=== PATIENT | female | born 1955 | race Caucasian/White ===

== ENCOUNTER → 2020-01-17 | Outpatient (REF) | payer MEDICARE | LOC: M SFHCLERA 12:29 | PROVIDERS: ATTEND Nurse Practitioner Family | DX: R39.9 Unspecified symptoms and signs involving the genitourinary system (principal) ==

== ENCOUNTER → 2020-01-17 | Outpatient (CLI) | payer MEDICARE ==
--- NOTE | 2020-01-17 14:35 | REP ---
KUB: REASON: Hematuria. PRIORS: None. FINDINGS: KUB shows the intestinal gas pattern to be nonspecific. The organ silhouettes insofar as delineated are unremarkable. There is no evidence of free intraperitoneal air. IMPRESSION: Nonspecific. The stool pattern is unremarkable. Electronically Signed by Roberto Sawyer DO 01/17/2020 02:39 P
== END ==
LOC: M LRY 12:54
PROVIDERS: ATTEND Nurse Practitioner Family
DX: R31.9 Hematuria, unspecified (principal)
CPT/HCPCS: 74018; 81002; 87086; G0463

== ENCOUNTER → 2020-03-05 | Outpatient (CLI) | payer MEDICARE ==
[~2020-03-05] MED LIST: AMOX500C PO; AMOX875T2 PO; CIPR500T3 PO; LEVO50TA5 PO; LIDOCAINE 1% MDV 20ML VIAL As Ordered ONE; LOVE1INJ SC; MIDAZOLAM INJ 2MG/2ML VIAL (J2250 PER 1MG) As Ordered ONE; ONDA8TAB10; ONDA8TAB10 PO; PANT40TA29 PO; PROC10TA4 PO; VITA50005 PO; ceFAZolin 1GM VIAL (J0690 PER 500MG) As Ordered ONE; diphenhydrAMINE 50MG/ML VIAL (J1200) As Ordered ONE; fentaNYL 100 MCG/2 ML INJECTION (J3010) As Ordered ONE
--- NOTE | 2020-03-05 14:49 | POST-OPPD ---
Postoperative Procedure Note Date Of Procedure: Mar 05, 2020 Time Of Procedure: 14:47 PREOPERATIVE DIAGNOSIS: ovarian cancer POSTOPERATIVE DIAGNOSIS: same FINDINGS: patent right IJ PROCEDURE: right sided port placed SURGEON: Kesha ANESTHESIA: mod sed ESTIMATED BLOOD LOSS: < 5 ml COMPLICATIONS: none POSTOPERATIVE CONDITION: stable CLARI VERGARA MD Mar 05, 2020 14:48
[2020-03-05 16:20] VITALS: BP 148/67
--- NOTE | 2020-03-09 14:16 | REP ---
IR Ultrasound and fluoroscopy-guided port placement. IR Ultrasound of the neck. IR Moderate sedation. Clinical information: Ovarian cancer. Physician: Dr. Rebolledo. Procedure: The patient was advised of the benefits, risks, and alternatives of the procedure and informed consent was obtained. A time-out was performed with verification of the patient's name, MRN, site of procedure and type of procedure to be performed. The patient was positioned in the supine position on the angiographic table. The site was prepped and draped in the usual sterile fashion. Moderate sedation was performed by the physician including the presence of an independent trained observer who assisted and monitored the patient's level of consciousness and physiologic status. Following the administration of fentanyl and Versed, the physician spent 30 minutes of continuous face to face time with the patient. Ultrasound of the neck reveals a patent and compressible right internal jugular vein. A helpdesk analyst radiograph reveals no gross abnormality. The neck and anterior chest wall were anesthetized with lidocaine. The right internal jugular vein was accessed using a microintroducer needle under ultrasound guidance, via a lateral approach. An 018 wire was advanced into the superior vena cava, the needle was removed and a microsheath was placed. An Amplatz wire was then passed into the inferior vena cava. An incision at the internal jugular vein access site and anterior chest wall were made using a scalpel. An incision was made at the anterior chest wall. A small pocket was created using a combination of blunt and sharp dissection. A tunneling device was then used to pass the catheter from the pocket to the neck puncture site. An 8-Ugandan Angio dynamics Smart power port was then positioned in the pocket. The catheter was then measured and cut. The introducer sheath was exchanged for a peel-away sheath. The catheter was passed through the peel-away sheath into the internal jugular vein and the peel-away sheath was removed. The port tip was positioned at the cavoatrial junction. The port was then accessed with a Pearce needle. The port flushes and aspirates well. The puncture site in the neck was closed. The chest wall incision was then closed with 2-0 Vicryl and 4-0 Monocryl. Glue and Steri-Strips were applied. A sterile dressing was then applied. The patient tolerated the procedure well and was returned to the PRU in stable condition. Estimated blood loss: <5 ml. Complications: None. Conclusion: 1. Successful placement of an 8-Ugandan Angio dynamics Smart power port via the right internal jugular vein. The port is ready for immediate use. 2. Patient to follow up in IR clinic in 2 weeks. Thank you for this referral. Electronically Signed by Theresa Rebolledo MD 03/09/2020 02:15 P
== END ==
LOC: M IRPRO 12:23
PROVIDERS: ATTEND Internal Medicine Medical Oncology
DX: C56.9 Malignant neoplasm of unspecified ovary (principal)
CPT/HCPCS: 36561; 99152; 99153; C1769; C1788; C1894; J0690; J1200; J1642; J1644; J2250; J3010

== ENCOUNTER → 2020-03-10 | Outpatient (CLI) | payer MEDICARE ==
[~2020-03-10] MED LIST changes: -LIDOCAINE 1% MDV 20ML VIAL As Ordered ONE; -MIDAZOLAM INJ 2MG/2ML VIAL (J2250 PER 1MG) As Ordered ONE; -ceFAZolin 1GM VIAL (J0690 PER 500MG) As Ordered ONE; -diphenhydrAMINE 50MG/ML VIAL (J1200) As Ordered ONE; -fentaNYL 100 MCG/2 ML INJECTION (J3010) As Ordered ONE
--- NOTE | 2020-03-11 10:00 | REP ---
REASON FOR EXAM: History of ovarian carcinoma. There are no priors for comparison. After the intravenous administration of 9 millicuries of FDG-18, triplane whole body PET-CT was performed from the skull base to the mid thigh. There is no abnormal hypermetabolic activity seen in the neck, chest, abdomen, or pelvis. Hypermetabolic activity is seen in the anterior midline subcutaneous abdominal adipose secondary to postoperative change. IMPRESSION: No abnormal hypermetabolic activity is noted. Electronically Signed by Roberto Sawyer DO 03/11/2020 05:18 P
== END ==
LOC: M PLARAD 12:33
PROVIDERS: ATTEND Internal Medicine Medical Oncology
DX: C56.1 Malignant neoplasm of right ovary (principal)
CPT/HCPCS: 78815; A9552

== ENCOUNTER → 2020-10-16 | Outpatient (CLI) | payer MEDICARE ==
[~2020-10-16] MED LIST changes: +GABA-1171 PO; +GASTROGRAFIN SOLUTION 30ML (Q9963) As Ordered ONE
--- NOTE | 2020-10-21 07:53 | REP ---
INDICATION: OVARIAN CA COMPARISON: Outside examinations dated 08/18/2020, 04/17/2020 TECHNIQUE: Axial noncontrast images from the lung bases to the pubic symphysis with coronal and sagittal reformations obtained after administration of oral contrast as per protocol. This CT examination was performed using the following dose reduction techniques: Automated exposure control, adjustment of mA and/or kv according to the patient's size, and use of iterative reconstruction technique. FINDINGS: Lung bases are clear. Visualized heart and pericardium normal. Liver, spleen, pancreas, and bilateral adrenal glands are normal for noncontrast evaluation. Evidence for prior cholecystectomy. The left kidney demonstrates mild renal pelvic fullness with a ureteral stent in satisfactory position extending into the bladder without associated hydroureter. The right kidney demonstrates considerable cortical thinning and chronic grade 4 hydroureteronephrosis to the level of the mid pelvis where surgical clips are identified (series 201 images 92-97) after which the right ureter is not identifiable. Surgical clips are than noted in the deep right hemipelvis in the region of the right ureterovesical junction/right adnexa. These findings are essentially unchanged when compared with 08/18/2020. The enteric system is unremarkable and without obstruction or acute inflammatory process. Midline anterior abdominopelvic wall deep to the umbilicus demonstrates focal area of granulation tissue and subcutaneous gas likely related to prior surgery although abscess and or fistula cannot definitively be excluded (series 201 images 105-125). This same area on prior examination appear to contain oral contrast material which has subsequently been evacuated. Further evaluation of the pelvis demonstrates collapsed bladder and evidence for prior hysterectomy. No pelvic fluid or ascites. No free air. No adenopathy. No focal mass lesion. Abdominal aorta without aneurysm. Musculoskeletal structures demonstrate age-related degenerative changes without acute osseous abnormality. IMPRESSION: 1. Changes to the bilateral kidneys as described above similar to prior examination. Correlation with prior surgical history and intervention is recommended. Specifically, grade 4 right hydronephrosis and hydroureter to the level of surgical clips warrant correlation. 2. Presumed postsurgical granulation tissue in the periumbilical subcutaneous tissue with thickening and areas of subcutaneous gas. As described above, small resolving abscess and/or fistula cannot definitively be excluded. 3. No further acute abdominopelvic pathology appreciated. No ascites, adenopathy, or evidence for metastatic disease/recurrence noted. <Electronically signed by Ishmael Crabtree > 10/21/20 0749
== END ==
LOC: M RAD 16:24
PROVIDERS: ATTEND Specialist
DX: N13.30 Unspecified hydronephrosis (principal); C56.9 Malignant neoplasm of unspecified ovary
CPT/HCPCS: 74176; Q9963

== ENCOUNTER 2020-11-27 13:13 | Observation (INO) | payer MEDICARE ==
[~2020-11-27] VITALS: Ht 152.4 cm; Wt 181.7 kg
[2020-11-27] MEDS: LEVOTHYROXINE 50MCG TABLET (0.05MG) PO SCH (06:00)
[~2020-11-27 13:13] MED LIST changes: +AMPI500C9 PO; +GABA-845 PO; -GASTROGRAFIN SOLUTION 30ML (Q9963) As Ordered ONE; +ROSUVASTATIN 10 MG TAB (CRESTOR) PO SCH
--- NOTE | 2020-11-27 14:04 | REP ---
INDICATION: slurred speech. COMPARISON: No comparison brain imaging.. TECHNIQUE: Helical scanning is acquired. 5 mm axial images were reformatted. Coronal MPR images were generated. FINDINGS: Preliminary digital physician general internal medicine radiograph is unremarkable. Bone window settings show no bony destructive lesion. Visualized paranasal sinuses are clear. No intraorbital abnormality is seen. On soft tissue window settings, there is minimal generalized volume loss. There is no evidence of intracranial hemorrhage. However, there is a low-density area in the right basal ganglia including the anterior limb of the right internal capsule consistent with recent infarction. This area measures 3.2 x 1.8 by 1.9 cm. The infarct involves the head of the caudate nucleus and a portion of the Candace Jacobs nuclei. No other infarction is seen. No extra-axial fluid collection is observed. There is minimal attenuation of the adjacent frontal horn. IMPRESSION: Findings consistent with a acute/subacute infarct involving the right basal ganglia. No intracranial hemorrhage. No midline shift or extra-axial fluid collection. Minimal generalized volume loss.. <Electronically signed by Donato Joaquin > 11/27/20 1400
[2020-11-27] MEDS ORDERED: ASPIRIN 81 MG CHEW TABLET PO ONE (14:30)
[2020-11-27 14:52] LABS: BASO # 0.1 10^3/uL (0.0-0.2); EOS # 0.2 10^3/uL (0.0-0.5); EOS % 3.3 % (0.0-3.0); HEMOGLOBIN 13.3 g/dl (12.0-15.5); LYMPH # 1.3 10^3/uL (1.5-5.0); LYMPH % 19.8 % (24.0-44.0); MEAN CORPUSCULAR HEMOGLOBIN 27.7 pg (27.0-33.0); MEAN CORPUSCULAR HGB CONC 30.9 g/dl (32.0-36.5); MEAN CORPUSCULAR VOLUME 89.6 fl (80.0-96.0); MONO # 0.5 10^3/uL (0.0-0.8); NEUTROPHILS # 4.6 10^3/uL (1.5-8.5); NEUTROPHILS % 68.5 % (36.0-66.0); PLATELET COUNT, AUTOMATED 248 10^3/uL (150-450); WHITE BLOOD COUNT 6.7 10^3/uL (4.0-10.0)
[2020-11-27 15:02] LABS: INR 1.04; PROTHROMBIN TIME 13.8 SECONDS (12.5-14.3)
[2020-11-27 15:31] LABS: ALBUMIN 3.8 GM/DL (3.2-5.2); ALT/SGPT 20 U/L (12-78); BILIRUBIN,DIRECT 0.1 MG/DL (0.0-0.2); BILIRUBIN,TOTAL 0.4 MG/DL (0.2-1.0); BLOOD UREA NITROGEN 18 MG/DL (7-18); CALCIUM LEVEL 10.1 MG/DL (8.8-10.2); CARBON DIOXIDE LEVEL 26 MEQ/L (21-32); CHLORIDE LEVEL 108 MEQ/L (98-107); CK-MB VALUE MASS 1.1 NG/ML (<3.6); CPK CREATINE PHOSPHOKINASE 40 U/L (26-192); CREATININE FOR GFR 1.25 MG/DL (0.55-1.30); GLOMERULAR FILTRATION RATE 45.6 (>45); GLUCOSE, FASTING 92 MG/DL (70-100); MB/CK RELATIVE INDEX 2.75 (< OR =4); POTASSIUM SERUM 4.3 MEQ/L (3.5-5.1); SODIUM LEVEL 140 MEQ/L (136-145); TROPONIN I < 0.02 NG/ML (< 0.10)
--- NOTE | 2020-11-27 15:32 | REP ---
INDICATION: Altered Mental Status. COMPARISON: No comparison chest x-ray. TECHNIQUE: Portable upright AP chest radiograph. FINDINGS: The patient is rotated quite a bit to the left. There is right internal jugular Ywewpq-E-Uevg catheter with its tip in the expected location of the superior vena cava. Heart is not enlarged. Lung ward appear to be clear. Pulmonary vasculature is not increased. No acute bony abnormality.. IMPRESSION: Patient is rotated quite a bit to the left. Scyxuq-T-Oqor catheter in place. Otherwise no acute disease.. <Electronically signed by Donato Joaquin > 11/27/20 0331
[2020-11-27 15:33] LABS: RSV AMPLIFICATION NEGATIVE (NEGATIVE)
--- NOTE | 2020-11-27 15:42 | HPEPDOC ---
[facility] Medical History & Physical Date of Admission Nov 27, 2020 Date of Service: Nov 27, 2020 Attending Physician: Avis Morrell MD History and Physical CHIEF COMPLAINT: Slurred speech HISTORY OF PRESENT ILLNESS: Patient is a 65-year-old female with past medical history of right ovarian cancer status post chemotherapy 06/2020, peripheral neuropathy secondary to chemotherapy, hypothyroidism, right kidney injury, chronic abdominal wound who presented to [facility] emergency room with the chief complaint of having left- sided facial droop and search speech on 11/25/2020. According to patient, her symptoms began Monday afternoon at approximately 4 PM. She began experiencing lightheadedness, and her family stated she had left-sided facial droop with increased slurred speech. The patient stated her symptoms lasted approximately 34 hours and then resolved that same day. She denied chest pain, shortness of breath, fevers, headache, chills, coughing, drooling, recent stroke. Today the patient came to the emergency room to be further evaluated for her symptoms. In the emergency room vital signs were stable. Labs were unremarkable. CT of the head showed no acute, subacute right basal ganglia stroke. ECG NSR, TSH wnl. She was given aspirin 325. She was at her baseline functionally, which is needing a cane and a walker at times. She denied lightheadedness today. NIH stroke scale 0. Neurology was called and the case was discussed thoroughly. It was suggested that the patient would require MRI and MRA of the brain, echocardiogram, carotid ultrasound in addition to neuro checks Q4H. She was later admitted for further workup of CVA. REVIEW OF SYSTEMS: Neg except mentioned above PAST MEDICAL HISTORY: Right ovarian cancer s/p chemotherapy 06/2020 Peripheral neuropathy secondary to chemotherapy Hypothyroidism Right kidney injury 2/2 to prior surgery PAST SURGICAL HISTORY: Partial hysterectomy Right oophrectomy 01/2020 Left kidney stent placement B/l knee surgeries Debridement of abdominal wound x2 FAMILY HISTORY: noncontributory SOCIAL HISTORY: Denies smoking, alcohol or illicit drug use. She lives with her locally. Her primary care doctor is Dr. Small, Urologist- Dr. Hendricks [facility], Heme/Oncology- Dr. Ruby, Wound care provider- Dr. Pitts. Full code ALLERGIES: Please see below. HOME MEDICATIONS: Please see below. PHYSICAL EXAMINATION: VS: stable CONSTITUTIONAL: No acute distress, resting comfortably, AAO x 3 EYES: PERRLA, EOM intact HENT, MOUTH: Normocephalic, atraumatic, moist mucous membranes NECK: SUPPLE, no JVD, no lymphadenopathy, no carotid bruit CV: Regular rate and rhythm, S1S2 normal, no murmurs/rubs/gallops CHEST: right side chest port under skin RESPIRATORY: Clear to auscultation bilaterally, no rales/rhonchi/wheezes GI: obese abd, BS positive in 4 quadrants, soft, nontender, nondistended, no rebound or guarding, no organomegaly : Deferred MUSCULOSKELETAL: Normal ROM. No cyanosis, clubbing, swelling, joint deformity, +1 extremity edema INTEGUMENTARY: Abdominal wound, covered in bandage, no surrounding erythema, tenderness, nonsuppurative. Otherwise all skin is intact, no rashes, no lesions, no erythema NEUROLOGIC: Cranial Nerves II-XII are intact, no focal deficits PSYCHIATRIC: Mood and affect are normal LABORATORY DATA: Please see below IMAGING: CT head: Findings consistent with a acute/subacute infarct involving the right basal ganglia. No intracranial hemorrhage. No midline shift or extra-axial fluid collection. Minimal generalized volume loss CXR: No acute disease ASSESSMENT: 65-year-old female with past medical history of right ovarian cancer status post chemotherapy 06/2020, peripheral neuropathy secondary to chemotherapy, hypothyroidism, right kidney injury, chronic abdominal wound admitted for further workup of CVA. PLAN: Right basal ganglia acute/subacute CVA -NIH score 0, currently no focal deficits -TSH wnl, ECG NSR, BP controlled -CT head above -Discussed case with Dr. Pimentel, neurology. -Started on statin, high dose ASA. -F/u MRI/MRA brain, echocardiogram, US carotid arteries, neuro checks Q4H, PT/OT eval, telemetry Right ovarian cancer status post chemotherapy 06/2020 -Per patient, they are monitoring closely as o/p through Dr. Ruby's office, [facility] Peripheral neuropathy secondary to chemotherapy -Mostly in b/l lower ext, right upper ext -no longer taking gabapentin -Stable Hypothyroidism -TSH wnl, NSR -C/w home levothyroxine dose Right kidney injury during surgery -Cr wnl -F/u o/p Chronic abdominal wound -Wound dressing just changed within last 2 days -WBC wnl, afebrile, area appears clean -F/u with Dr. Pitts o/p DVT px -Enoxaparin SC daily DISPOSITION: Admitted under observation status. Plan is discharge home when medically cleared. Vital Signs Vital Signs Date Time Temp Pulse Resp B/P (MAP) Pulse Ox O2 Delivery O2 Flow Rate FiO2 11/27/20 15:26 82 16 99 Room Air 11/27/20 15:01 135/63 (87) 11/27/20 13:14 98.2 Laboratory Data Labs 24H Laboratory Tests 2 11/27/20 14:41: Immature Granulocyte % (Auto) 0.4, Neutrophils (%) (Auto) 68.5H, Lymphocytes (%) (Auto) 19.8L, Monocytes (%) (Auto) 7.0, Eosinophils (%) (Auto) 3.3H, Basophils (%) (Auto) 1.0, Neutrophils # (Auto) 4.6, Lymphocytes # (Auto) 1.3L, Monocytes # (Auto) 0.5, Eosinophils # (Auto) 0.2, Basophils # (Auto) 0.1, Nucleated Red Blood Cells % (auto) 0.0, Prothrombin Time 13.8, Prothromb Time International Ratio 1.04, Anion Gap 6L, Glomerular Filtration Rate 45.6, Calcium Level 10.1, Total Bilirubin 0.4, Direct Bilirubin 0.1, Aspartate Amino Transf (AST/SGOT) 18, Alanine Aminotransferase (ALT/SGPT) 20, Alkaline Phosphatase 117, Total Creatine Kinase 40, Creatine Kinase MB 1.1, Creatine Kinase MB Relative Index 2.75, Troponin I < 0.02, Total Protein 8.0, Albumin 3.8, Albumin/Globulin Ratio 0.9L, Thyroid Stimulating Hormone (TSH) 1.540, Coronavirus (COVID-19)(PCR) NEGATIVE, Influenza Type A (RT-PCR) NEGATIVE, Influenza Type B (RT-PCR) NEGATIVE, Respiratory Syncytial Virus (PCR) NEGATIVE CBC/BMP Laboratory Tests 11/27/20 14:41 Home Medications Scheduled Ergocalciferol (Vitamin D2) (Vitamin D2) 50,000 Units Cap, 1,250 MCG PO 2XW MONDAY AND MONDAY Levothyroxine Sodium (Levothyroxine Sodium) 50 Mcg Tablet, 50 MCG PO DAILY Allergies Coded Allergies: No Known Allergies (Unverified , 02/27/20) A-FIB/CHADSVASC A-FIB History Current/History of A-Fib/PAF?: No Age/Risk Factor Scoring CHADSVASC: CHADSVASC Response (Comments) Value Age Risk Factor Age 65-74 years old 1 Gender Risk Factor Female 1 Hx of CHF No 0 Hx of HTN No 0 Hx of Stroke/TIA/or VTE No 0 Hx of Diabetes No 0 Hx of Vascular Disease No 0 Total 2 Treatment Treatment ordered: Other Other anticoagulant ordered: Avis Miranda MD Nov 27, 2020 15:42
[2020-11-27 16:13] LABS: CHOLESTEROL LEVEL 228 MG/DL (<200); CHOLESTEROL RISK RATIO 3.562 (<5); HDL CHOLESTEROL 64 MG/DL (>40); LDL CHOLESTEROL 144 MG/DL (<100); NON-HDL-C 164 MG/DL; TRIGLYCERIDES LEVEL 99 MG/DL (<150)
[2020-11-27 16:16] LABS: HEMOGLOBIN A1c 5.2 %
--- NOTE | 2020-11-27 17:19 | REP ---
INDICATION: CVA. COMPARISON: None. TECHNIQUE: Bilateral carotid artery duplex ultrasound. FINDINGS: Peak flow velocities: Right left Internal carotid artery 76 cm/sec 80 cm/sec Int. Carotid diastolic 34 cm/sec 25 cm/sec External carotid artery 66 cm/sec 56 cm/sec Common carotid artery 75 cm/sec 97 cm/sec ICA-CCA ratio 1.01 0.82 There is intimal thickening in the distal common carotid arteries, bulbs and internal carotid arteries and external carotid arteries bilaterally. No focal plaques are identified. Peak flow velocities are normal bilaterally. There are no stenoses on the right or the left. There is antegrade flow in the vertebral arteries bilaterally. IMPRESSION: There are no stenosis on the right or the left. <Electronically signed by Pasha Wynne > 11/27/20 1617
[2020-11-27 19:00] VITALS: BP 137/68
[2020-11-27 22:00] VITALS: BP 136/72
--- NOTE | 2020-11-27 22:28 | ECGEPIP ---
[facility] - ED Test Date: 2020-11-27 Pat Name: EFREN KEENAN Department: Room: - Gender: Female Scrummaster: : 1955 Requested By: Eli Clemons Order Number: [id number] Reading MD: Wolf Emerson Measurements Intervals [place] Rate: 86 P: -22 PA: 138 QRS: -26 QRSD: 66 T: -22 QT: 344 QTc: 411 Interpretive Statements Normal sinus rhythm Lead II uninterpretable Comparison tracing not on file Electronically Signed on 11-27-2020 22:28:20 EDT by Wolf Emerson
--- NOTE | 2020-11-27 23:31 | REPVR ---
PROCEDURE INFORMATION: Exam: MR Head Without Contrast Exam date and time: 11/27/2020 9:54 PM Age: 65 years old Clinical indication: Weakness, extremity; Bilateral; Additional info: CVA TECHNIQUE: Imaging protocol: MR of the head without contrast. COMPARISON: CT Head without contrast 2020-11-27 13:46 FINDINGS: Brain: Acute right caudate, putaminal, and anterior right perisylvian infarcts. Numerous chronic small deep white matter lacunar infarcts. Moderate chronic FLAIR hyperintense white matter disease. Additional recent infarcts in the left deep parietal lobe. Cerebral ventricles: Normal. No ventriculomegaly. Bones/joints: Unremarkable. Paranasal sinuses: Normal as visualized. No acute sinusitis. Mastoid air cells: Normal as visualized. No mastoid effusion. Orbital cavity: Unremarkable. Soft tissues: Unremarkable. Middle cerebral arteries: FLAIR signal in a right MCA branch indicating slow flow or occlusion. IMPRESSION: 1. Acute right caudate, putaminal, and anterior right perisylvian infarcts. 2. Additional recent infarcts in the left deep parietal lobe. Electronically signed by: Wolf Church On 11/27/2020 23:31:01 PM
--- NOTE | 2020-11-27 23:33 | REPVR ---
PROCEDURE INFORMATION: Exam: MR Angiogram Head Without Contrast, Arteries Exam date and time: 11/27/2020 9:54 PM Age: 65 years old Clinical indication: Weakness; Additional info: CVA TECHNIQUE: Imaging protocol: MR angiogram head without contrast. Exam focused on the arteries. COMPARISON: CT Head without contrast 2020-11-27 13:46 FINDINGS: ANTERIOR CIRCULATION: Right internal carotid artery: Intracranial segment is patent with no significant stenosis. No aneurysm. Right middle cerebral artery: Severely diminished flow related signal within the right anterior MCA M2 branch, evidence of severe stenosis or occlusion. Right anterior cerebral artery: No occlusion or significant stenosis. No aneurysm. Left internal carotid artery: Intracranial segment is patent with no significant stenosis. No aneurysm. Left middle cerebral artery: No occlusion or significant stenosis. No aneurysm. Left anterior cerebral artery: No occlusion or significant stenosis. No aneurysm. POSTERIOR CIRCULATION: Right vertebral artery: No occlusion or significant stenosis. No aneurysm. Left vertebral artery: No occlusion or significant stenosis. No aneurysm. Basilar artery: No occlusion or significant stenosis. No aneurysm. Right posterior cerebral artery: No occlusion or significant stenosis. No aneurysm. Left posterior cerebral artery: No occlusion or significant stenosis. No aneurysm. IMPRESSION: Severely diminished flow related signal within the right anterior MCA M2 branch, evidence of severe stenosis or occlusion. Electronically signed by: Wolf Church On 11/27/2020 23:33:23 PM
[2020-11-28] MEDS: LEVOTHYROXINE 50MCG TABLET (0.05MG) PO SCH (05:33)
[2020-11-28 06:00] VITALS: BP 106/72
[2020-11-28 06:28] LABS: HEMATOCRIT 37.2 % (36.0-47.0); HEMOGLOBIN 11.7 g/dl (12.0-15.5); MEAN CORPUSCULAR HEMOGLOBIN 28.3 pg (27.0-33.0); MEAN CORPUSCULAR HGB CONC 31.5 g/dl (32.0-36.5); MEAN CORPUSCULAR VOLUME 90.1 fl (80.0-96.0); PLATELET COUNT, AUTOMATED 219 10^3/uL (150-450); RED BLOOD COUNT 4.13 10^6/uL (4.00-5.40); WHITE BLOOD COUNT 6.1 10^3/uL (4.0-10.0)
[2020-11-28 06:54] LABS: CALCIUM LEVEL 9.3 MG/DL (8.8-10.2); CREATININE FOR GFR 1.16 MG/DL (0.55-1.30); GLOMERULAR FILTRATION RATE 49.8 (>45); POTASSIUM SERUM 4.5 MEQ/L (3.5-5.1)
[2020-11-28] MEDS ORDERED: ASPIRIN 325 MG TAB PO SCH (09:00)
[2020-11-28] MEDS ORDERED: ASPIRIN 81 MG CHEW TABLET PO SCH (09:00)
[2020-11-28] MEDS ORDERED: CLOPIDOGREL 75 MG TAB PO SCH (09:00)
[2020-11-28] MEDS ORDERED: ROSUVASTATIN 10 MG TAB (CRESTOR) PO SCH (09:00)
[2020-11-28] MEDS ORDERED: ASPIRIN 81MG ENTERIC TABLET PO SCH (09:00)
[2020-11-28] MEDS ORDERED: ENOXAPARIN 40MG/0.4ML SYRINGE (J1650 PER 10MG) SC SCH (09:00)
[2020-11-28 14:00] VITALS: BP 115/68
[2020-11-28] MEDS ORDERED: CLOP75TA2 PO (16:09)
[2020-11-28] MEDS ORDERED: CRES10TA PO (16:09)
[2020-11-28] MEDS ORDERED: ASPI-551 PO (16:09)
--- NOTE | 2020-11-28 16:11 | DS.PDOC ---
Discharge Summary General Date of Admission Nov 27, 2020 at 13:14 Date of Discharge 11/28/20 Attending Physician: Avis Morrell MD Discharge Summary HISTORY OF PRESENT ILLNESS: Patient is a 65-year-old female with past medical history of right ovarian cancer status post chemotherapy 06/2020, peripheral neuropathy secondary to chemotherapy, hypothyroidism, right kidney injury, chronic abdominal wound who presented to [facility] emergency room with the chief complaint of having left- sided facial droop and search speech on 11/25/2020. According to patient, her symptoms began Monday afternoon at approximately 4 PM. She began experiencing lightheadedness, and her family stated she had left-sided facial droop with increased slurred speech. The patient stated her symptoms lasted approximately 34 hours and then resolved that same day. She denied chest pain, shortness of breath, fevers, headache, chills, coughing, drooling, recent stroke. Today the patient came to the emergency room to be further evaluated for her symptoms. In the emergency room vital signs were stable. Labs were unremarkable. CT of the head showed no acute, subacute right basal ganglia stroke. ECG NSR, TSH wnl. She was given aspirin 325. She was at her baseline functionally, which is needing a cane and a walker at times. She denied lightheadedness today. NIH stroke scale 0. Neurology was called and the case was discussed thoroughly. It was suggested that the patient would require MRI and MRA of the brain, echocardiogram, carotid ultrasound in addition to neuro checks Q4H. She was later admitted for further workup of CVA. HOSPITAL COURSE: Neurology exams were negative over the evening. Physical therapy suggested/recommended continued physical therapy at home without any new neurological deficits noted. MRA of the brain showed right MCA stenosis/occlusion. MRI of the brain showed 1. Acute right caudate, putaminal, and anterior right perisylvian infarcts. 2. Additional recent infarcts in the left deep parietal lobe. Findings were discussed with neurology who suggested and recommended aspirin 81 mg daily, Plavix 75 mg daily along with a high-dose statin. Echocardiogram showed grade 1 diastolic dysfunction but had a negative bubble study. The patient was updated and decision was made to discharge home on 11/28/2020 with close follow-up with her primary care provider after the wee kend. The time of discharge the patient denied lightheadedness, dizziness, headache, fevers, chills, chest pain or shortness of breath. PAST MEDICAL HISTORY: Right ovarian cancer s/p chemotherapy 06/2020 Peripheral neuropathy secondary to chemotherapy Hypothyroidism Right kidney injury 2/2 to prior surgery PAST SURGICAL HISTORY: Partial hysterectomy Right oophrectomy 01/2020 Left kidney stent placement B/l knee surgeries Debridement of abdominal wound x2 FAMILY HISTORY: noncontributory SOCIAL HISTORY: Denies smoking, alcohol or illicit drug use. She lives with her locally. Her primary care doctor is Dr. Small, Urologist- Dr. Beckfordkely [facility], Heme/Oncology- Dr. Ruby, Wound care provider- Dr. Pitts. Full code ALLERGIES: Please see below. HOME MEDICATIONS: Please see below. PHYSICAL EXAMINATION: VS: stable CONSTITUTIONAL: No acute distress, resting comfortably, AAO x 3 EYES: PERRLA, EOM intact HENT, MOUTH: Normocephalic, atraumatic, moist mucous membranes NECK: SUPPLE, no JVD, no lymphadenopathy, no carotid bruit CV: Regular rate and rhythm, S1S2 normal, no murmurs/rubs/gallops CHEST: right side chest port under skin RESPIRATORY: Clear to auscultation bilaterally, no rales/rhonchi/wheezes GI: obese abd, BS positive in 4 quadrants, soft, nontender, nondistended, no rebound or guarding, no organomegaly : Deferred MUSCULOSKELETAL: Normal ROM. No cyanosis, clubbing, swelling, joint deformity, +1 extremity edema INTEGUMENTARY: Abdominal wound, covered in bandage, no surrounding erythema, tenderness, nonsuppurative. Otherwise all skin is intact, no rashes, no lesions, no erythema NEUROLOGIC: Cranial Nerves II-XII are intact, no focal deficits PSYCHIATRIC: Mood and affect are normal LABORATORY DATA: Please see below IMAGING: Echocardiogram with bubble study: Grade 1 diastolic dysfunction, neg bubble study Discussed with Dr. Stern, official transcript pending Carotid US: There are no stenosis on the right or the left. MRA brain: Severely diminished flow related signal within the right anterior MCA M2 branch, evidence of severe stenosis or occlusion. MRI brain: 1. Acute right caudate, putaminal, and anterior right perisylvian infarcts. 2. Additional recent infarcts in the left deep parietal lobe. CT head: Findings consistent with a acute/subacute infarct involving the right basal ganglia. No intracranial hemorrhage. No midline shift or extra-axial fluid collection. Minimal generalized volume loss CXR: No acute disease ASSESSMENT: 65-year-old female with past medical history of right ovarian cancer status post chemotherapy 06/2020, peripheral neuropathy secondary to chemotherapy, hypothyroidism, right kidney injury, chronic abdominal wound admitted for further workup of CVA. PLAN: Acute right caudate, putaminal, and anterior right perisylvian infarcts. Acute infarcts in the left deep parietal lobe. -No focal deficts, neuro exam neg -TSH wnl, ECG NSR, BP controlled -CT head, MRI/MRA brain, echocardiogram, US carotid arteries above -Discussed case with Dr. Pimentel, neurology. -C/w high dose statin, ASA, plavix. -Follow up with PCP after weekend. PT referral given to patient at discharge. Right ovarian cancer status post chemotherapy 06/2020 -Per patient, they are monitoring closely as o/p through Dr. Ruby's office, [facility] Peripheral neuropathy secondary to chemotherapy -Mostly in b/l lower ext, right upper ext -no longer taking gabapentin -Stable Hypothyroidism -TSH wnl, NSR -C/w home levothyroxine dose Right kidney injury during surgery -Cr wnl -F/u o/p Chronic abdominal wound -Wound dressing just changed within last 2 days -WBC wnl, afebrile, area appears clean -F/u with Dr. Pitts o/p DISPOSITION: Discharged home with new medications, suggestions above. F/u with PCP after the weekend. TIME SPENT ON DISCHARGE: 35 minutes Vital Signs/I&Os Vital Signs Date Time Temp Pulse Resp B/P (MAP) Pulse Ox O2 Delivery O2 Flow Rate FiO2 11/28/20 14:00 97.4 76 20 115/68 (84) 99 11/28/20 10:20 Room Air I&O- Last 24 Hours up to 6 AM 11/28/20 06:00 Intake Total 450 ml Output Total 200 ml Balance 250 ml Laboratory Data Labs 24H Laboratory Tests 2 11/28/20 05:22: Nucleated Red Blood Cells % (auto) 0.0, Anion Gap 8, Glomerular Filtration Rate 49.8, Calcium Level 9.3 CBC/BMP Laboratory Tests 11/28/20 05:22 Discharge Medications Scheduled Aspirin (Aspirin EC) 81 Mg Tablet., 81 MG PO DAILY Clopidogrel Bisulfate (Clopidogrel) 75 Mg Tablet, 75 MG PO DAILY Ergocalciferol (Vitamin D2) (Vitamin D2) 50,000 Units Cap, 1,250 MCG PO 2XW, (Reported) MONDAY AND MONDAY Levothyroxine Sodium (Levothyroxine Sodium) 50 Mcg Tablet, 50 MCG PO DAILY, (Reported) Rosuvastatin Calcium (Crestor) 10 Mg Tablet, 40 MG PO DAILY Allergies Coded Allergies: No Known Allergies (Unverified , 02/27/20) Avis Morrell MD Nov 28, 2020 16:11
[2020-11-28] MEDS ORDERED: AMPI500C9 PO (18:30)
--- NOTE | 2020-11-30 08:31 | ECHO ---
DATE OF PROCEDURE: 11/28/2020 Age: 65 Gender: Female Height: 152 cm Weight: 79.4 kg REFERRING PHYSICIAN: Avis Morrell M.D. INDICATION: Acute cerebral stroke, unspecified. MEASUREMENTS: 2D Measurements: Left atrium 2.8 cm Aortic root 2.9 cm Intraventricular septum 1.08 cm Posterior wall 1.13 cm Left ventricle diastole 3.4 cm Doppler Measurements: No aortic stenosis No aortic regurgitation Aortic valve velocity 138 cm/s LVOT velocity 133 cm/s LVOT VTI 25.8 cm Very mild mitral regurgitation Mitral E velocity 75.0 cm/s Mitral A velocity 87.4 cm/s Mitral deceleration time 166 msec No tricuspid regurgitation No pulmonic regurgitation Pulmonary artery acceleration time 114 msec suggestive of normal PA systolic pressure MITRAL ANNULAR TISSUE DOPPLER E prime septal 6.3 cm/s, E prime lateral 9.4 cm/s DESCRIPTION: Rhythm was sinus. Image quality was fair. Technically difficult subcostal window. No pericardial effusion. This was a 2D, M-mode, color flow Doppler, and pulsed wave Doppler examination. CONCLUSIONS: 1. Saline bubble study negative for detection of intracardiac shunting. 2. Normal left ventricle internal dimensions and wall thickness. Normal regional LV wall motion and wall thickening. Normal LV systolic function. LVEF 65% - 70% by visual estimate. Grade 1 LV diastolic dysfunction. 3. Otherwise normal appearing echocardiogram Doppler findings. MTDD
[2020-12-14] MEDS ORDERED: AMIT10TA7 PO (15:12)
[2020-12-14] MEDS ORDERED: COVI100V IM (15:12)
[2020-12-14] MEDS ORDERED: CIPR-249 PO (15:36)
== END 2020-11-28 17:40 | disposition home or self-care (01) ==
LOC: M ED 13:13 → M ED INP 13:14 → ENRESERV 17:10 → M MSPAV 19:01
PROVIDERS: ADMIT Internal Medicine; ATTEND Internal Medicine
DX: I63.9 Cerebral infarction, unspecified (principal); E03.9 Hypothyroidism, unspecified; N17.9 Acute kidney failure, unspecified; Z85.43 Personal history of malignant neoplasm of ovary; Z92.21 Personal history of antineoplastic chemotherapy; Z79.02 Long term (current) use of antithrombotics/antiplatelets; Z79.82 Long term (current) use of aspirin; Z79.899 Other long term (current) drug therapy
CPT/HCPCS: 36415; 70450; 70544; 70551; 71045; 80048; 80061; 80076; 81001; 82550; 82553; 83036; 84443; 84484; 85025; 85027; 85610; 87086; 87631; 93005; 93041; 93306; 93880; 94760; 96372; 97161; 97530; 99285; G0378; J1650

== ENCOUNTER → 2021-01-22 | Outpatient (CLI) | payer MEDICARE ==
[~2021-01-22] MED LIST changes: +AMIT10TA7 PO; +ASPI-551 PO; +CIPR-249 PO; +CLOP75TA2 PO; +COVI100V IM; +CRES10TA PO; +GABA-283 PO; -GABA-845 PO; -ROSUVASTATIN 10 MG TAB (CRESTOR) PO SCH
--- NOTE | 2021-01-22 15:10 | REP ---
INDICATION: OBSTRUCTION OF LT URETER. COMPARISON: None. FINDINGS: Multiple ultrasonographic images of the right kidney show the right kidney to measure 9.3 x 5.1 x 4.8 cm. The renal cortex is markedly thinned in faintly visible. There are no masses. There is no appreciable corticomedullary differentiation. There is severe hydronephrosis. Multiple ultrasonographic images of the left kidney show the left kidney to measure 10.4 x 5 x 4.8 cm. The renal cortical echotexture is unremarkable. There are no masses. There is good corticomedullary differentiation. There is no hydronephrosis. There are no perinephric fluid collections. A linear echogenic areas seen in the mid to lower pole region consistent with a known stent. IMPRESSION: 1. Severe right-sided hydronephrosis with chronic renal changes as described above. 2. Probable stent seen on the left. CT of the abdomen and pelvis 10/16/2020 which is the latest prior did show left renal stent <Electronically signed by Roberto Sawyer > 01/22/21 [id number]
== END ==
LOC: M RAD 14:22
PROVIDERS: ATTEND Student in an Organized Health Care Education/Training Program
DX: N13.39 Other hydronephrosis (principal)

== ENCOUNTER → 2021-08-31 | Outpatient (CLI) | payer MEDICARE ==
[~2021-08-31] MED LIST changes: +AMIT75TA PO; +B-COTAB10 PO; +ERGO500029 PO; +GABA-282 PO; +LEVO500T4 PO; +ONDA-84; +ONDA-84 PO; -ONDA8TAB10; -ONDA8TAB10 PO; +OXYB-54 PO; -PROC10TA4 PO; +PROC10TA5 PO; -VITA50005 PO
== END ==
LOC: M WHC 14:10
PROVIDERS: ATTEND Obstetrics & Gynecology Gynecologic Oncology
DX: Z12.31 Encounter for screening mammogram for malignant neoplasm of breast (principal); C56.1 Malignant neoplasm of right ovary

== ENCOUNTER → 2021-11-23 | Outpatient (CLI) | payer MEDICARE ==
[~2021-11-23] MED LIST changes: +CLOT1CRE56 TOP; +CRANCAP PO; +OXYB10TA23 PO
== END ==
LOC: M RAD 14:33
PROVIDERS: ATTEND Internal Medicine Medical Oncology
DX: N13.2 Hydronephrosis with renal and ureteral calculous obstruction (principal); C56.1 Malignant neoplasm of right ovary; N28.9 Disorder of kidney and ureter, unspecified

== ENCOUNTER → 2022-01-17 | Outpatient (CLI) | payer MEDICARE | LOC: M WHC 13:16 | PROVIDERS: ATTEND Student in an Organized Health Care Education/Training Program | DX: N13.5 Crossing vessel and stricture of ureter without hydronephrosis (principal) ==

== ENCOUNTER → 2022-01-17 | Outpatient (CLI) | payer MEDICARE ==
[2022-01-17 18:20] LABS: CALCIUM LEVEL 9.7 MG/DL (8.8-10.2); CREATININE FOR GFR 1.67 MG/DL (0.55-1.30); GLOMERULAR FILTRATION RATE 32.6 (>45); POTASSIUM SERUM 4.7 MEQ/L (3.5-5.1)
== END ==
LOC: M PLALAB 14:29
PROVIDERS: ATTEND Student in an Organized Health Care Education/Training Program
DX: N13.5 Crossing vessel and stricture of ureter without hydronephrosis (principal)

== ENCOUNTER → 2022-02-09 | Outpatient (CLI) | payer MEDICARE | LOC: M RAD 13:06 | PROVIDERS: ATTEND Obstetrics & Gynecology | DX: C56.1 Malignant neoplasm of right ovary (principal); N13.2 Hydronephrosis with renal and ureteral calculous obstruction; K57.30 Diverticulosis of large intestine without perforation or abscess without bleeding; Z90.49 Acquired absence of other specified parts of digestive tract ==

== ENCOUNTER 2022-03-22 10:12 | Emergency (ER) | payer MEDICARE ==
[~2022-03-22] VITALS: Ht 152.4 cm; Wt 96.4 kg
[~2022-03-22 10:12] MED LIST changes: +AMIT10TA7
[2022-03-22 10:13] VITALS: BP 152/91
[2022-03-22] MEDS ORDERED: CEPH500C PO (13:47)
[2022-03-24] MEDS ORDERED: AMPI500C9 PO (09:35)
== END 2022-03-22 14:10 | disposition home or self-care (01) ==
LOC: M ED 10:12
DX: N39.0 Urinary tract infection, site not specified (principal); Z86.73 Personal history of transient ischemic attack (TIA), and cerebral infarction without residual deficits; Z79.02 Long term (current) use of antithrombotics/antiplatelets; Z85.43 Personal history of malignant neoplasm of ovary; Z92.21 Personal history of antineoplastic chemotherapy; Z79.899 Other long term (current) drug therapy

== ENCOUNTER → 2022-05-23 | Outpatient (CLI) | payer MEDICARE ==
[~2022-05-23] MED LIST changes: +CEPH500C PO; +LEVO1TAB39 PO; -LEVO500T4 PO
[2022-05-23 14:41] LABS: CALCIUM LEVEL 9.7 MG/DL (8.8-10.2); CREATININE FOR GFR 4.41 MG/DL (0.55-1.30); GLOMERULAR FILTRATION RATE 10.6 (>45); POTASSIUM SERUM 4.7 MEQ/L (3.5-5.1)
== END ==
LOC: M RAD 10:30
PROVIDERS: ATTEND Student in an Organized Health Care Education/Training Program
DX: N13.5 Crossing vessel and stricture of ureter without hydronephrosis (principal)

== ENCOUNTER → 2022-11-11 | Outpatient (REF) | payer MEDICARE ==
[2022-11-11 17:50] LABS: POTASSIUM SERUM 4.5 MMOL/L (3.5-5.1)
== END ==
LOC: M LAB REF 16:52
PROVIDERS: ATTEND Internal Medicine Nephrology
DX: M18.31 Unilateral post-traumatic osteoarthritis of first carpometacarpal joint, right hand (principal)

== ENCOUNTER → 2022-11-30 | Outpatient (CLI) | payer MEDICARE | LOC: M RAD 15:15 | PROVIDERS: ATTEND Internal Medicine Medical Oncology | DX: C56.9 Malignant neoplasm of unspecified ovary (principal) ==

== ENCOUNTER 2022-12-16 10:45 | Outpatient (CLI) | payer MEDICARE ==
[~2022-12-16 10:45] MED LIST changes: +ALBUTEROL SULFATE 2.5MG/0.5ML INH NEB SOLN INH PRN; +EPINEPHrine INJ 1 MG/ML 1ML AMP IM PRN; +diphenhydrAMINE 50MG/ML VIAL IV PRN; +methylPREDNISolone 125MG 2ML VIAL IV PRN
[2022-12-16] MEDS ORDERED: NS 1,000 ML IV SCH (11:30)
[2022-12-16] MEDS ORDERED: FERRIC CARBOXYMALTOSE INJ 750 MG in NS 250 ML (>50kg) IV ONE ×3 (11:30)
[2022-12-16 11:34] VITALS: BP 180/78
[2022-12-16 12:42] VITALS: BP 145/74
== END 2022-12-16 12:35 | disposition home or self-care (01) ==
LOC: M INFU 10:45
PROVIDERS: ATTEND Internal Medicine Nephrology
DX: D50.9 Iron deficiency anemia, unspecified (principal)
CPT/HCPCS: 96365; J1439

== ENCOUNTER 2022-12-23 09:47 | Outpatient (CLI) | payer MEDICARE ==
[~2022-12-23 09:47] MED LIST changes: +ALBUTEROL SULFATE 2.5MG/0.5ML INH NEB SOLN INH PRN; +EPINEPHrine INJ 1 MG/ML 1ML AMP IM PRN; +diphenhydrAMINE 50MG/ML VIAL IV PRN; +methylPREDNISolone 125MG 2ML VIAL IV PRN
[2022-12-23 09:55] VITALS: BP 119/70
[2022-12-23 11:20] VITALS: BP 137/79
[2022-12-23] MEDS ORDERED: NS 1,000 ML IV SCH (11:30)
[2022-12-23] MEDS ORDERED: FERRIC CARBOXYMALTOSE INJ 750 MG in NS 250 ML (>50kg) IV ONE ×3 (11:30)
[2022-12-27] MEDS ORDERED: AMPI500C9 PO (17:22)
== END 2022-12-23 11:20 ==
LOC: M INFU 09:47
PROVIDERS: ATTEND Internal Medicine Nephrology
DX: D50.9 Iron deficiency anemia, unspecified (principal); N26.1 Atrophy of kidney (terminal); N13.30 Unspecified hydronephrosis; N17.9 Acute kidney failure, unspecified
CPT/HCPCS: 76775; 96365; J1439

== ENCOUNTER → 2022-12-23 | Outpatient (CLI) | payer MEDICARE ==
[~2022-12-23] MED LIST changes: -ALBUTEROL SULFATE 2.5MG/0.5ML INH NEB SOLN INH PRN; -EPINEPHrine INJ 1 MG/ML 1ML AMP IM PRN; -diphenhydrAMINE 50MG/ML VIAL IV PRN; -methylPREDNISolone 125MG 2ML VIAL IV PRN
== END ==
LOC: M RAD 09:45
PROVIDERS: ATTEND Internal Medicine Nephrology
DX: N17.9 Acute kidney failure, unspecified (principal); N26.1 Atrophy of kidney (terminal); N13.30 Unspecified hydronephrosis

== ENCOUNTER → 2023-02-15 | Outpatient (CLI) | payer MEDICARE ==
[~2023-02-15] MED LIST changes: -ALBUTEROL SULFATE 2.5MG/0.5ML INH NEB SOLN INH PRN; +AMIT25TA17; +AMIT25TA17 PO; +ASPI-161 PO; +BACI1TAB20 PO; +CEFD300C41 PO; -EPINEPHrine INJ 1 MG/ML 1ML AMP IM PRN; +MACR100C43 PO; +NEUR300C PO; +NITR100C2; +ROSU10TA6 PO; +SODI650T PO; -diphenhydrAMINE 50MG/ML VIAL IV PRN; -methylPREDNISolone 125MG 2ML VIAL IV PRN
[2023-02-15 14:11] LABS: CALCIUM LEVEL 8.8 MG/DL (8.3-10.6); CREATININE FOR GFR 3.99 MG/DL (0.55-1.30); GLOMERULAR FILTRATION RATE 11.9 (>45); POTASSIUM SERUM 4.2 MMOL/L (3.5-5.1)
== END ==
LOC: M LAB 12:41
PROVIDERS: ATTEND Internal Medicine
DX: N17.9 Acute kidney failure, unspecified (principal); N18.9 Chronic kidney disease, unspecified

== ENCOUNTER → 2023-03-10 | Outpatient (CLI) | payer MEDICARE ==
[2023-03-10 16:07] LABS: BASO % 0.5 % (0.0-1.0); EOS # 0.2 10^3/uL (0.0-0.5); EOS % 2.7 % (0.0-3.0); HEMATOCRIT 37.3 % (36.0-47.0); HEMOGLOBIN 11.5 g/dl (12.0-15.5); LYMPH # 1.1 10^3/uL (1.5-5.0); LYMPH % 16.1 % (24.0-44.0); MEAN CORPUSCULAR HEMOGLOBIN 30.3 pg (27.0-33.0); MEAN CORPUSCULAR HGB CONC 30.8 g/dl (32.0-36.5); MEAN CORPUSCULAR VOLUME 98.2 fl (80.0-96.0); MONO # 0.3 10^3/uL (0.0-0.8); MONO % 4.5 % (2.0-8.0); NEUTROPHILS % 75.1 % (36.0-66.0); PLATELET COUNT, AUTOMATED 229 10^3/uL (150-450); WHITE BLOOD COUNT 6.7 10^3/uL (4.0-10.0)
[2023-03-10 16:43] LABS: FOLATE 9.7 NG/ML (>5.4)
[2023-03-10 16:56] LABS: ALBUMIN 3.5 G/DL (3.2-5.2); BILIRUBIN,TOTAL 0.2 MG/DL (0.3-1.2); CALCIUM LEVEL 9.1 MG/DL (8.3-10.6); CREATININE FOR GFR 4.29 MG/DL (0.55-1.30); GLOMERULAR FILTRATION RATE 10.9 (>45); POTASSIUM SERUM 4.6 MMOL/L (3.5-5.1); TOTAL PROTEIN 7.4 G/DL (5.7-8.2)
== END ==
LOC: M LAB 15:00
PROVIDERS: ATTEND Psychiatry & Neurology Neurology
DX: G62.9 Polyneuropathy, unspecified (principal); E53.8 Deficiency of other specified B group vitamins; E51.9 Thiamine deficiency, unspecified; E53.1 Pyridoxine deficiency

== ENCOUNTER → 2023-07-17 | Outpatient (CLI) | payer MEDICARE ==
[~2023-07-17] MED LIST changes: -AMIT25TA17; -AMIT25TA17 PO; +AMIT25TA19; +AMIT25TA19 PO; -CEFD300C41 PO; +CEFD300C42 PO; -GABA-283 PO; +GABA-284 PO
== END ==
LOC: M PLAIMG 09:06
PROVIDERS: ATTEND Nurse Practitioner Family
DX: C56.1 Malignant neoplasm of right ovary (principal); N13.4 Hydroureter; K43.9 Ventral hernia without obstruction or gangrene

== ENCOUNTER 2023-07-21 16:02 | Emergency (ER) | payer MEDICARE ==
[~2023-07-21] VITALS: Ht 152.4 cm; Wt 94.1 kg
[2023-07-21] MEDS ORDERED: AMPI500C9 PO (16:49)
[2023-07-21 17:07] LABS: APPEARANCE, URINE CLOUDY (CLEAR); BACTERIA, URINE AUTO 1+ (NEGATIVE); BILIRUBIN, URINE AUTO NEGATIVE (NEGATIVE); BLOOD, URINE BLOOD 2+ (NEGATIVE); COLOR, URINE YELLOW (YELLOW); GLUCOSE, URINE (UA) AUTO NEGATIVE (NEGATIVE); KETONE, URINE AUTO NEGATIVE (NEGATIVE); LEUKOCYTE ESTERASE, URINE AUTO 3+ (NEGATIVE); MUCUS, URINE SMALL (NEGATIVE); NITRITE, URINE AUTO NEGATIVE (NEGATIVE); PROTEIN, URINE AUTO 2+ mg/dL (NEGATIVE); RBC, URINE AUTO 13 /HPF (0-3); SPECIFIC GRAVITY URINE AUTO 1.006 (1.002-1.035); SQUAMOUS EPITHELIAL CELL UR AU 1 /HPF (0-6); UROBILINOGEN, URINE AUTO 0.2 mg/dL (0.0-2.0); WBC, URINE AUTO TNTC /HPF (0-3)
[2023-07-21 17:12] VITALS: BP 142/85; TEMP 99.6; O2SAT 100
[2023-07-24] MEDS ORDERED: BACT800T5 PO (09:07)
== END 2023-07-21 17:44 | disposition home or self-care (01) ==
LOC: M ED 16:02
DX: T83.092A Other mechanical complication of nephrostomy catheter, initial encounter (principal); N39.0 Urinary tract infection, site not specified; E03.9 Hypothyroidism, unspecified; C56.9 Malignant neoplasm of unspecified ovary; Z79.899 Other long term (current) drug therapy; Z79.82 Long term (current) use of aspirin

== ENCOUNTER → 2023-10-13 | Outpatient (REF) | payer MEDICARE ==
[~2023-10-13] MED LIST changes: -ASPI-161 PO; +ASPI-615 PO; +BACT800T5 PO; +CEFD1CAP9 PO; -CEFD300C42 PO; +FURO40TA2 PO
[2023-10-13 13:16] LABS: APPEARANCE, URINE HAZY (CLEAR); BACTERIA, URINE AUTO 1+ (NEGATIVE); BILIRUBIN, URINE AUTO NEGATIVE (NEGATIVE); BLOOD, URINE BLOOD 2+ (NEGATIVE); COLOR, URINE STRAW (YELLOW); GLUCOSE, URINE (UA) AUTO NEGATIVE (NEGATIVE); KETONE, URINE AUTO NEGATIVE (NEGATIVE); LEUKOCYTE ESTERASE, URINE AUTO 3+ (NEGATIVE); NITRITE, URINE AUTO NEGATIVE (NEGATIVE); PROTEIN, URINE AUTO NEGATIVE (NEGATIVE); RBC, URINE AUTO 26 /HPF (0-3); SPECIFIC GRAVITY URINE AUTO 1.009 (1.002-1.035); SQUAMOUS EPITHELIAL CELL UR AU 2 /HPF (0-6); UROBILINOGEN, URINE AUTO 0.2 mg/dL (0.0-2.0); WBC, URINE AUTO 89 /HPF (0-3)
== END ==
LOC: M SMT 12:52
PROVIDERS: ATTEND Nurse Practitioner Family
DX: Z93.6 Other artificial openings of urinary tract status (principal)

== ENCOUNTER → 2024-01-08 | Outpatient (CLI) | payer MEDICARE ==
[~2024-01-08] MED LIST changes: +CEPHALEXIN 500 MG CAP As Ordered ONE; +ISOVUE-300 61% 100ML VIAL As Ordered ONE; +LIDOCAINE 1% MDV 20ML VIAL As Ordered ONE; -ROSU10TA6 PO; +ROSU10TA61 PO
[2024-01-08 08:00] VITALS: TEMP 98.3
[2024-01-08] MEDS: CEPHALEXIN 500 MG CAP PO ONE (08:43)
[2024-01-08 09:42] VITALS: BP 157/71; O2SAT 98
== END ==
LOC: M IRPRO 07:39
PROVIDERS: ATTEND Nurse Practitioner Family
DX: N13.30 Unspecified hydronephrosis (principal)
CPT/HCPCS: 50435; 75984; C1729; C1769; Q9967

== ENCOUNTER 2024-01-24 17:32 | Emergency (ER) | payer MEDICARE ==
[~2024-01-24] VITALS: Ht 152.4 cm; Wt 104.0 kg
[~2024-01-24 17:32] MED LIST changes: -CEPHALEXIN 500 MG CAP As Ordered ONE; -ISOVUE-300 61% 100ML VIAL As Ordered ONE; -LIDOCAINE 1% MDV 20ML VIAL As Ordered ONE
[2024-01-24 20:21] VITALS: BP 136/69; TEMP 97.5; O2SAT 97
== END 2024-01-24 20:23 | disposition home or self-care (01) ==
LOC: M ED 17:32
DX: T83.032A Leakage of nephrostomy catheter, initial encounter (principal); Z79.01 Long term (current) use of anticoagulants; Z85.43 Personal history of malignant neoplasm of ovary; Z92.21 Personal history of antineoplastic chemotherapy; Z79.82 Long term (current) use of aspirin; Z79.899 Other long term (current) drug therapy

== ENCOUNTER → 2024-04-09 | Outpatient (CLI) | payer MEDICARE ==
[~2024-04-09] MED LIST changes: +CEPHALEXIN 500 MG CAP As Ordered ONE; +CEPHALEXIN 500 MG CAP PO ONE; +ISOVUE-300 61% 100ML VIAL As Ordered ONE; +LIDOCAINE 1% MDV 20ML VIAL As Ordered ONE; +MIDAZOLAM INJ 2MG/2ML VIAL As Ordered ONE; +NS 1,000 ML IV SCH; +ceFAZolin SOD 1 GM in D5W MINI-BAG PLUS 50 ML IV ONE; +fentaNYL 100 MCG/2 ML INJECTION As Ordered ONE
[2024-04-09 08:35] VITALS: TEMP 97.6
[2024-04-09 10:45] VITALS: BP 125/59; O2SAT 100
== END ==
LOC: M IRPRO 08:26
PROVIDERS: ATTEND Nurse Practitioner Family
DX: N13.30 Unspecified hydronephrosis (principal); Z93.6 Other artificial openings of urinary tract status
CPT/HCPCS: 50435; 99152; 99153; C1729; C1769; J2250; J3010; Q9967

== ENCOUNTER → 2024-06-04 | Outpatient (CLI) | payer MEDICARE ==
[~2024-06-04] MED LIST changes: -CEPHALEXIN 500 MG CAP As Ordered ONE; -CEPHALEXIN 500 MG CAP PO ONE; +CIPROFLOXACIN/D5W 400 MG/200 ML BAG As Ordered ONE; +GABA-1172 PO; -GABA-282 PO; -NS 1,000 ML IV SCH; -ceFAZolin SOD 1 GM in D5W MINI-BAG PLUS 50 ML IV ONE
[2024-06-04 08:20] VITALS: TEMP 97.4
[2024-06-04] MEDS: CIPROFLOXACIN 400 MG in IV 1 EA IV ONE (10:36)
[2024-06-04] MEDS: NS 1,000 ML IV SCH (10:36)
[2024-06-04 11:40] VITALS: BP 151/69; O2SAT 99
== END ==
LOC: M IRPRO 08:16
PROVIDERS: ATTEND Nurse Practitioner Family
DX: Z93.6 Other artificial openings of urinary tract status (principal)
CPT/HCPCS: 50435; 99152; 99153; C1729; J0744; J2250; J3010; Q9967

== ENCOUNTER → 2024-06-18 | Outpatient (CLI) | payer MEDICARE ==
[~2024-06-18] MED LIST changes: +CEPHALEXIN 500 MG CAP As Ordered ONE; +CIPROFLOXACIN 400 MG in IV 1 EA IV ONE; -CIPROFLOXACIN/D5W 400 MG/200 ML BAG As Ordered ONE; -MIDAZOLAM INJ 2MG/2ML VIAL As Ordered ONE; +NS 1,000 ML IV SCH; -fentaNYL 100 MCG/2 ML INJECTION As Ordered ONE
[2024-06-18 08:40] VITALS: TEMP 96.3
[2024-06-18] MEDS: CEPHALEXIN 500 MG CAP PO ONE (08:57)
[2024-06-18 09:54] VITALS: BP 130/58; O2SAT 96
== END ==
LOC: M IRPRO 07:52
PROVIDERS: ATTEND Radiology Diagnostic Radiology
DX: N13.9 Obstructive and reflux uropathy, unspecified (principal)
CPT/HCPCS: 50435; Q9967

== ENCOUNTER → 2024-07-09 | Outpatient (CLI) | payer MEDICARE ==
[~2024-07-09] MED LIST changes: +ACETAMINOPHEN 325 MG TAB As Ordered ONE; -CEPHALEXIN 500 MG CAP As Ordered ONE; -CIPROFLOXACIN 400 MG in IV 1 EA IV ONE; +CIPROFLOXACIN/D5W 400 MG/200 ML BAG As Ordered ONE; +MEPERIDINE 25 MG/ML 1ML VIAL As Ordered ONE; +MIDAZOLAM INJ 2MG/2ML VIAL As Ordered ONE; +MORPHINE 2 MG/ML 1ML VIAL IV PRN; +NS 1,000 ML IV ONE; +ONDANSETRON 4MG 2ML VIAL IV PRN; +OXYB5TAB14 PO; +PERCOCET 5MG/325MG TAB PO PRN; +diphenhydrAMINE 50MG/ML VIAL As Ordered ONE; +fentaNYL 100 MCG/2 ML INJECTION As Ordered ONE
[2024-07-09 08:30] VITALS: TEMP 97.9
[2024-07-09 09:12] LABS: HEMATOCRIT 42.2 % (36.0-47.0); HEMOGLOBIN 13.3 g/dl (12.0-15.5); MEAN CORPUSCULAR HEMOGLOBIN 31.2 pg (27.0-33.0); MEAN CORPUSCULAR HGB CONC 31.5 g/dl (32.0-36.5); MEAN CORPUSCULAR VOLUME 99.1 fl (80.0-96.0); PLATELET COUNT, AUTOMATED 174 10^3/uL (150-450); RED BLOOD COUNT 4.26 10^6/uL (4.00-5.40); WHITE BLOOD COUNT 5.5 10^3/uL (4.0-10.0)
[2024-07-09 09:27] LABS: INR 0.99; PROTHROMBIN TIME 13.4 SECONDS (12.5-14.5)
[2024-07-09] MEDS: CIPROFLOXACIN 400 MG in IV 1 EA IV ONE (09:30)
[2024-07-09] MEDS: MEPERIDINE 25 MG/ML 1ML VIAL IV ONE (13:09)
[2024-07-09] MEDS: ACETAMINOPHEN 325 MG TAB PO PRN (13:09)
[2024-07-09 14:30] VITALS: BP 172/79; O2SAT 98
== END ==
LOC: M IRPRO 08:11
PROVIDERS: ATTEND Radiology Diagnostic Radiology
DX: N13.9 Obstructive and reflux uropathy, unspecified (principal)
CPT/HCPCS: 50434; 85027; 85610; 99152; 99153; C1894; C2625; J0744; J1200; J2175; J2250; J3010; Q9967

== ENCOUNTER → 2024-07-16 | Outpatient (CLI) | payer MEDICARE ==
[~2024-07-16] MED LIST changes: -ACETAMINOPHEN 325 MG TAB As Ordered ONE; -CIPROFLOXACIN/D5W 400 MG/200 ML BAG As Ordered ONE; -ISOVUE-300 61% 100ML VIAL As Ordered ONE; -LIDOCAINE 1% MDV 20ML VIAL As Ordered ONE; -MEPERIDINE 25 MG/ML 1ML VIAL As Ordered ONE; -MIDAZOLAM INJ 2MG/2ML VIAL As Ordered ONE; -MORPHINE 2 MG/ML 1ML VIAL IV PRN; -NS 1,000 ML IV ONE; -NS 1,000 ML IV SCH; -ONDANSETRON 4MG 2ML VIAL IV PRN; -PERCOCET 5MG/325MG TAB PO PRN; +SEVE800T3; -diphenhydrAMINE 50MG/ML VIAL As Ordered ONE; -fentaNYL 100 MCG/2 ML INJECTION As Ordered ONE
== END ==
LOC: M TMIRPOV 08:10
PROVIDERS: ATTEND Radiology Diagnostic Radiology
DX: N13.9 Obstructive and reflux uropathy, unspecified (principal)

== ENCOUNTER → 2024-07-18 | Outpatient (CLI) | payer MEDICARE ==
[2024-07-18 14:37] LABS: HEMOGLOBIN 13.1 g/dl (12.0-15.5); MEAN CORPUSCULAR HEMOGLOBIN 30.6 pg (27.0-33.0); MEAN CORPUSCULAR HGB CONC 31.2 g/dl (32.0-36.5); MEAN CORPUSCULAR VOLUME 98.1 fl (80.0-96.0); PLATELET COUNT, AUTOMATED 252 10^3/uL (150-450); RED BLOOD COUNT 4.28 10^6/uL (4.00-5.40); WHITE BLOOD COUNT 8.4 10^3/uL (4.0-10.0)
[2024-07-18 14:41] LABS: APPEARANCE, URINE CLOUDY (CLEAR); BACTERIA, URINE AUTO NEGATIVE (NEGATIVE); BILIRUBIN, URINE AUTO NEGATIVE (NEGATIVE); BLOOD, URINE BLOOD 3+ (NEGATIVE); COLOR, URINE YELLOW (YELLOW); GLUCOSE, URINE (UA) AUTO NEGATIVE (NEGATIVE); KETONE, URINE AUTO NEGATIVE (NEGATIVE); LEUKOCYTE ESTERASE, URINE AUTO 3+ (NEGATIVE); NITRITE, URINE AUTO NEGATIVE (NEGATIVE); PROTEIN, URINE AUTO 2+ mg/dL (NEGATIVE); RBC, URINE AUTO TNTC /HPF (0-3); SPECIFIC GRAVITY URINE AUTO 1.008 (1.002-1.035); SQUAMOUS EPITHELIAL CELL UR AU 3 /HPF (0-6); UROBILINOGEN, URINE AUTO 0.2 mg/dL (0.0-2.0); WBC, URINE AUTO TNTC /HPF (0-3)
[2024-07-18 15:10] LABS: CALCIUM LEVEL 9.7 MG/DL (8.3-10.6); CREATININE FOR GFR 4.12 MG/DL (0.55-1.30); GLOMERULAR FILTRATION RATE 11.4 (>39); POTASSIUM SERUM 3.9 MMOL/L (3.5-5.1)
== END ==
LOC: M LAB 14:04
PROVIDERS: ATTEND Radiology Diagnostic Radiology
DX: N39.0 Urinary tract infection, site not specified (principal)

== ENCOUNTER 2024-07-25 12:20 | Emergency (ER) | payer MEDICARE ==
[~2024-07-25] VITALS: Ht 162.6 cm; Wt 103.5 kg
[2024-07-25 13:41] LABS: APPEARANCE, URINE HAZY (CLEAR); BACTERIA, URINE AUTO 1+ (NEGATIVE); BILIRUBIN, URINE AUTO NEGATIVE (NEGATIVE); BLOOD, URINE BLOOD 3+ (NEGATIVE); COLOR, URINE YELLOW (YELLOW); GLUCOSE, URINE (UA) AUTO NEGATIVE (NEGATIVE); KETONE, URINE AUTO NEGATIVE (NEGATIVE); LEUKOCYTE ESTERASE, URINE AUTO 3+ (NEGATIVE); NITRITE, URINE AUTO NEGATIVE (NEGATIVE); PROTEIN, URINE AUTO 2+ mg/dL (NEGATIVE); RBC, URINE AUTO 26 /HPF (0-3); SPECIFIC GRAVITY URINE AUTO 1.005 (1.002-1.035); SQUAMOUS EPITHELIAL CELL UR AU 3 /HPF (0-6); UROBILINOGEN, URINE AUTO 0.2 mg/dL (0.0-2.0); WBC, URINE AUTO TNTC /HPF (0-3)
[2024-07-25 14:02] LABS: BASO % 0.7 % (0.0-1.0); EOS # 0.2 10^3/uL (0.0-0.5); EOS % 2.7 % (0.0-3.0); HEMATOCRIT 37.1 % (36.0-47.0); HEMOGLOBIN 11.5 g/dl (12.0-15.5); LYMPH # 0.7 10^3/uL (1.5-5.0); MEAN CORPUSCULAR HEMOGLOBIN 30.5 pg (27.0-33.0); MEAN CORPUSCULAR VOLUME 98.4 fl (80.0-96.0); MONO # 0.3 10^3/uL (0.0-0.8); MONO % 5.3 % (2.0-8.0); NEUTROPHILS # 4.7 10^3/uL (1.5-8.5); PLATELET COUNT, AUTOMATED 214 10^3/uL (150-450); RED BLOOD COUNT 3.77 10^6/uL (4.00-5.40)
[2024-07-25 14:23] LABS: ALBUMIN 3.5 G/DL (3.2-5.2); ALKALINE PHOSPHATASE 128 U/L (35-104); ALT/SGPT 18 U/L (7.0-40); AMYLASE 64 U/L (30-118); AST/SGOT 14 U/L (<34); BILIRUBIN,DIRECT < 0.1 MG/DL (<0.4); BILIRUBIN,TOTAL 0.2 MG/DL (0.3-1.2); BLOOD UREA NITROGEN 55 MG/DL (9-23); CALCIUM LEVEL 9.6 MG/DL (8.3-10.6); CARBON DIOXIDE LEVEL 19 MMOL/L (20-31); CHLORIDE LEVEL 106 MMOL/L (98-107); CREATININE FOR GFR 5.06 MG/DL (0.55-1.30); GLUCOSE, FASTING 95 MG/DL (74-106); POTASSIUM SERUM 5.1 MMOL/L (3.5-5.1); SODIUM LEVEL 138 MMOL/L (136-145); TOTAL PROTEIN 7.7 G/DL (5.7-8.2)
[2024-07-25 14:34] VITALS: BP 133/88; TEMP 98.7; O2SAT 99
== END 2024-07-25 16:20 | disposition home or self-care (01) ==
LOC: M ED 12:20
DX: T83.012A Breakdown (mechanical) of nephrostomy catheter, initial encounter (principal); N18.9 Chronic kidney disease, unspecified; D64.9 Anemia, unspecified; C56.9 Malignant neoplasm of unspecified ovary; Z79.82 Long term (current) use of aspirin; Z79.899 Other long term (current) drug therapy; Z79.2 Long term (current) use of antibiotics

== ENCOUNTER → 2024-07-30 | Outpatient (CLI) | payer MEDICARE ==
[~2024-07-30] MED LIST changes: +ACETAMINOPHEN 325 MG TAB PO PRN; +CIPROFLOXACIN/D5W 400 MG/200 ML BAG As Ordered ONE; +ISOVUE-300 61% 100ML VIAL As Ordered ONE; +LIDOCAINE 1% MDV 20ML VIAL As Ordered ONE; +MIDAZOLAM INJ 2MG/2ML VIAL As Ordered ONE; +MORPHINE 10 MG/ML 1ML VIAL IV PRN; +NS 1,000 ML IV SCH; +ONDANSETRON 4MG 2ML VIAL IV PRN; +PERCOCET 5MG/325MG TAB As Ordered ONE; +fentaNYL 100 MCG/2 ML INJECTION As Ordered ONE
[2024-07-30 12:02] VITALS: TEMP 97.5
[2024-07-30] MEDS: CIPROFLOXACIN 400 MG in IV 1 EA IV ONE (12:37)
[2024-07-30] MEDS: NS 1,000 ML IV SCH (12:37)
[2024-07-30] MEDS: PERCOCET 5MG/325MG TAB PO PRN (15:59)
[2024-07-30 16:55] VITALS: BP 163/71; O2SAT 99
== END ==
LOC: M IRPRO 11:41
PROVIDERS: ATTEND Radiology Diagnostic Radiology
DX: N13.9 Obstructive and reflux uropathy, unspecified (principal)
CPT/HCPCS: 50387; 72192; 99152; 99153; C1769; C1887; C1894; C2625; J0744; J1642; J2250; J3010; Q9967

== ENCOUNTER → 2024-07-31 | Outpatient (CLI) | payer MEDICARE ==
[~2024-07-31] MED LIST changes: -ACETAMINOPHEN 325 MG TAB PO PRN; -MORPHINE 10 MG/ML 1ML VIAL IV PRN; -NS 1,000 ML IV SCH; -ONDANSETRON 4MG 2ML VIAL IV PRN; -PERCOCET 5MG/325MG TAB As Ordered ONE
[2024-07-31 10:00] VITALS: TEMP 97.9
[2024-07-31] MEDS: CIPROFLOXACIN 400 MG in IV 1 EA IV ONE (10:48)
[2024-07-31 13:05] VITALS: BP 158/87; O2SAT 99
== END ==
LOC: M IRPRO 09:44
PROVIDERS: ATTEND Radiology Diagnostic Radiology
DX: N13.8 Other obstructive and reflux uropathy (principal); T83.092A Other mechanical complication of nephrostomy catheter, initial encounter
CPT/HCPCS: 50387; 99152; 99153; C1729; J0744; J1642; J2250; J3010; Q9967

== ENCOUNTER 2024-08-11 16:08 | Inpatient (IN) | payer MEDICARE ==
[~2024-08-11] VITALS: Ht 152.4 cm; Wt 104.0 kg
[~2024-08-11 16:08] MED LIST changes: -CIPROFLOXACIN/D5W 400 MG/200 ML BAG As Ordered ONE; -ISOVUE-300 61% 100ML VIAL As Ordered ONE; -LIDOCAINE 1% MDV 20ML VIAL As Ordered ONE; -MIDAZOLAM INJ 2MG/2ML VIAL As Ordered ONE; -SEVE800T3; +SEVE800T3 PO; -fentaNYL 100 MCG/2 ML INJECTION As Ordered ONE
[2024-08-11] MEDS: NS 500 ML IV ONE (17:00)
[2024-08-11 19:07] LABS: BASO % 0.5 % (0.0-1.0); EOS # 0.2 10^3/uL (0.0-0.5); HEMATOCRIT 34.8 % (36.0-47.0); HEMOGLOBIN 10.7 g/dl (12.0-15.5); LYMPH # 0.7 10^3/uL (1.5-5.0); LYMPH % 9.5 % (24.0-44.0); MEAN CORPUSCULAR HEMOGLOBIN 30.1 pg (27.0-33.0); MEAN CORPUSCULAR HGB CONC 30.7 g/dl (32.0-36.5); MONO # 0.4 10^3/uL (0.0-0.8); MONO % 5.2 % (2.0-8.0); NEUTROPHILS # 6.2 10^3/uL (1.5-8.5); NEUTROPHILS % 82.5 % (36.0-66.0); PLATELET COUNT, AUTOMATED 192 10^3/uL (150-450); RED BLOOD COUNT 3.55 10^6/uL (4.00-5.40); WHITE BLOOD COUNT 7.5 10^3/uL (4.0-10.0)
[2024-08-11 19:34] LABS: CALCIUM LEVEL 9.5 MG/DL (8.3-10.6); CREATININE FOR GFR 5.58 MG/DL (0.55-1.30); POTASSIUM SERUM 4.7 MMOL/L (3.5-5.1)
[2024-08-11] MEDS: cefTRIAXone SOD 1 GM in DEXTROSE 5% (D5W) ADV/MINI-BAG 50 ML IV ONE (20:15)
[2024-08-11] MEDS: AMITRIPTYLINE 10MG TABLET PO SCH (21:00)
[2024-08-11] MEDS: SODIUM BICARBONATE 325 MG TAB PO SCH (21:00)
[2024-08-11] MEDS ORDERED: AMITRIPTYLINE 25MG TABLET PO SCH (21:00)
[2024-08-11] MEDS: ROSUVASTATIN 10 MG TAB (CRESTOR) PO SCH (21:00)
[2024-08-11] MEDS: (RENVELA) SEVELAMER **CARBONate** 800 MG TAB PO SCH (21:00)
[2024-08-11] MEDS ORDERED: MOM 30ML SUSPENSION UDC PO PRN (21:15)
[2024-08-11] MEDS: NS 1,000 ML IV SCH (21:18)
[2024-08-11] MEDS ORDERED: VITA100T14 PO (22:14)
[2024-08-11] MEDS ORDERED: OXYB5TAB14 PO (22:14)
[2024-08-11] MEDS ORDERED: GABA-1172 PO (22:14)
[2024-08-11] MEDS ORDERED: HOME MED LIST COMPLETE! XX SCH ×2 (22:15→23:00)
[2024-08-11] MEDS ORDERED: AMIT-253 PO (22:58)
[2024-08-12 03:35] VITALS: BP 131/55; TEMP 97.7; O2SAT 93
[2024-08-12] MEDS: MORPHINE 2 MG/ML 1ML VIAL IV PRN (04:31)
[2024-08-12] MEDS: LEVOTHYROXINE 50MCG TABLET (0.05MG) PO SCH (05:33)
[2024-08-12 07:51] LABS: HEMATOCRIT 29.7 % (36.0-47.0); HEMOGLOBIN 9.1 g/dl (12.0-15.5); MEAN CORPUSCULAR HGB CONC 30.6 g/dl (32.0-36.5); PLATELET COUNT, AUTOMATED 172 10^3/uL (150-450); RED BLOOD COUNT 3.03 10^6/uL (4.00-5.40)
[2024-08-12 08:16] LABS: ALBUMIN 2.6 G/DL (3.2-5.2); BILIRUBIN,TOTAL 0.2 MG/DL (0.3-1.2); CREATININE FOR GFR 5.17 MG/DL (0.55-1.30); GLOMERULAR FILTRATION RATE 8.8 (>39); POTASSIUM SERUM 4.8 MMOL/L (3.5-5.1); TOTAL PROTEIN 5.9 G/DL (5.7-8.2)
[2024-08-12] MEDS ORDERED: CLOPIDOGREL 75 MG TAB PO SCH (09:00)
[2024-08-12] MEDS: NYSTATIN 100,000 UNITS/GM TOPICAL PWD 15GM TOP SCH (09:00)
[2024-08-12] MEDS: DOCUSATE SODIUM 100MG CAPSULE PO SCH (09:00)
[2024-08-12] MEDS: oxyBUTYnin 5 MG TAB PO SCH (09:00)
[2024-08-12] MEDS: ASPIRIN 81MG ENTERIC TABLET PO SCH (09:00)
[2024-08-12] MEDS ORDERED: FUROSEMIDE 40 MG TAB PO SCH (09:00)
[2024-08-12] MEDS ORDERED: HEPARIN SOD (PORCINE) 5000UNITS/ML 1ML VIAL/SYRINGE SC SCH (09:00)
[2024-08-12 09:30] VITALS: BP 115/48; TEMP 97.6; O2SAT 97
[2024-08-12 12:26] VITALS: BP 115/49; TEMP 97.7; O2SAT 98
[2024-08-12] MEDS ORDERED: NS 1,000 ML IV SCH (16:15)
[2024-08-12] MEDS ORDERED: ISOVUE-300 61% 100ML VIAL As Ordered ONE (16:34)
[2024-08-12] MEDS ORDERED: MIDAZOLAM INJ 2MG/2ML VIAL As Ordered ONE (16:34)
[2024-08-12] MEDS ORDERED: LIDOCAINE 1% MDV 20ML VIAL As Ordered ONE (16:34)
[2024-08-12] MEDS ORDERED: fentaNYL 100 MCG/2 ML INJECTION As Ordered ONE (16:34)
[2024-08-12] MEDS: NS 1,000 ML IV SCH (16:40)
[2024-08-12] MEDS ORDERED: cefTRIAXone SOD 1GM VIAL As Ordered ONE (16:42)
[2024-08-12] MEDS: cefTRIAXone SOD 1 GM in DEXTROSE 5% (D5W) ADV/MINI-BAG 50 ML IV ONE (16:57)
[2024-08-12 19:57] VITALS: BP 103/59; TEMP 97.7; O2SAT 97
[2024-08-12] MEDS ORDERED: cefTRIAXone SOD 1 GM in DEXTROSE 5% (D5W) ADV/MINI-BAG 50 ML IV SCH (20:00)
[2024-08-12] MEDS: ROSUVASTATIN 10 MG TAB (CRESTOR) PO SCH (20:40)
[2024-08-13 04:23] VITALS: BP 110/58; TEMP 97.3; O2SAT 98
[2024-08-13 07:15] LABS: BASO % 0.5 % (0.0-1.0); EOS # 0.3 10^3/uL (0.0-0.5); HEMATOCRIT 29.5 % (36.0-47.0); HEMOGLOBIN 8.9 g/dl (12.0-15.5); LYMPH # 0.8 10^3/uL (1.5-5.0); MEAN CORPUSCULAR HEMOGLOBIN 29.9 pg (27.0-33.0); MEAN CORPUSCULAR HGB CONC 30.2 g/dl (32.0-36.5); MONO # 0.5 10^3/uL (0.0-0.8); NEUTROPHILS # 4.7 10^3/uL (1.5-8.5); PLATELET COUNT, AUTOMATED 176 10^3/uL (150-450); RED BLOOD COUNT 2.98 10^6/uL (4.00-5.40); WHITE BLOOD COUNT 6.3 10^3/uL (4.0-10.0)
[2024-08-13 07:36] LABS: PERCENT SATURATION 13.1 % (13.2-45.0)
[2024-08-13 07:38] LABS: FERRITIN 264.3 NG/ML (7.3-270.7)
[2024-08-13 09:49] LABS: ALBUMIN 2.6 G/DL (3.2-5.2); CALCIUM LEVEL 8.7 MG/DL (8.3-10.6); CREATININE FOR GFR 5.07 MG/DL (0.55-1.30); PHOSPHORUS LEVEL 4.6 MG/DL (2.4-5.1); POTASSIUM SERUM 5.1 MMOL/L (3.5-5.1)
[2024-08-13] MEDS: PATIROMER SORBITEX CALCIUM 8.4 GM POWDER PACKET (VELTASSA) PO ONE (11:06)
[2024-08-13] MEDS: FERRIC CARBOXYMALTOSE INJ 750 MG, VIAL MATE ADAPTER 1 EACH in NS 100 ML IV ONE (11:51)
[2024-08-13 12:00] VITALS: BP 105/53; TEMP 97.9; O2SAT 99
[2024-08-13 20:00] VITALS: BP 105/47; TEMP 98.8; O2SAT 95
[2024-08-13] MEDS: cefTRIAXone SOD 1 GM in DEXTROSE 5% (D5W) ADV/MINI-BAG 50 ML IV SCH (21:07)
[2024-08-14 04:25] VITALS: BP 131/65; TEMP 97.3; O2SAT 95
[2024-08-14 09:09] LABS: ALBUMIN 2.5 G/DL (3.2-5.2); CALCIUM LEVEL 9.1 MG/DL (8.3-10.6); CREATININE FOR GFR 4.82 MG/DL (0.55-1.30); GLOMERULAR FILTRATION RATE 9.5 (>39); PHOSPHORUS LEVEL 5.1 MG/DL (2.4-5.1); POTASSIUM SERUM 4.1 MMOL/L (3.5-5.1)
[2024-08-14 09:10] VITALS: BP 130/70; TEMP 97.9; O2SAT 96
[2024-08-14] MEDS: DARBEPOETIN 100MCG/0.5ML *NON-DIALYSIS* SYRINGE SC SCH (11:41)
[2024-08-14 12:00] VITALS: BP 102/63; TEMP 97.6; O2SAT 98
== END 2024-08-14 15:45 | disposition home or self-care (01) | DRG 699 ==
LOC: M ED 16:08 → M ED INP 21:15 → M MS5PR 08-12 03:27
PROVIDERS: ADMIT Family Medicine; ATTEND General Practice
PROC: 0T25X0Z Change Drainage Device in Kidney, External Approach (ICD-10-PCS; principal; 2024-08-12 15:00)
DX: T83.098A Other mechanical complication of other urinary catheter, initial encounter (principal); N17.9 Acute kidney failure, unspecified; N18.5 Chronic kidney disease, stage 5; N13.0 Hydronephrosis with ureteropelvic junction obstruction; Z68.41 Body mass index [BMI] 40.0-44.9, adult; D62 Acute posthemorrhagic anemia; I12.0 Hypertensive chronic kidney disease with stage 5 chronic kidney disease or end stage renal disease; Z93.6 Other artificial openings of urinary tract status; E78.5 Hyperlipidemia, unspecified; R31.0 Gross hematuria; E03.9 Hypothyroidism, unspecified; E66.01 Morbid (severe) obesity due to excess calories; G62.0 Drug-induced polyneuropathy; Z86.73 Personal history of transient ischemic attack (TIA), and cerebral infarction without residual deficits; Z85.43 Personal history of malignant neoplasm of ovary; Z79.82 Long term (current) use of aspirin; Z79.899 Other long term (current) drug therapy; Y84.6 Urinary catheterization as the cause of abnormal reaction of the patient, or of later complication, without mention of misadventure at the time of the procedure; Z92.21 Personal history of antineoplastic chemotherapy

== ENCOUNTER 2024-10-17 12:16 | Observation (INO) | payer MEDICARE ==
[~2024-10-17] VITALS: Ht 152.4 cm; Wt 97.1 kg
[~2024-10-17 12:16] MED LIST changes: -CEFD300CAP PO; -ISOVUE-300 61% 100ML VIAL IV ONE; -LIDOCAINE 1% MDV 20ML VIAL SC ONE; -MIDAZOLAM INJ 2MG/2ML VIAL IV SCH; -NS 250 ML IV SCH; -ONDA-282 PO; -SIME80CH6 PO; -fentaNYL 100 MCG/2 ML INJECTION IV SCH
[2024-10-17] MEDS: NS 500 ML IV ONE (12:50)
[2024-10-17 13:21] LABS: BASO % 0.8 % (0.0-1.0); EOS # 0.1 10^3/uL (0.0-0.5); EOS % 1.8 % (0.0-3.0); HEMOGLOBIN 13.2 g/dl (12.0-15.5); LYMPH # 0.9 10^3/uL (1.5-5.0); LYMPH % 18.3 % (24.0-44.0); MEAN CORPUSCULAR HEMOGLOBIN 32.6 pg (27.0-33.0); MEAN CORPUSCULAR HGB CONC 32.2 g/dl (32.0-36.5); MEAN CORPUSCULAR VOLUME 101.2 fl (80.0-96.0); MONO # 0.4 10^3/uL (0.0-0.8); MONO % 7.9 % (2.0-8.0); NEUTROPHILS # 3.5 10^3/uL (1.5-8.5); NEUTROPHILS % 70.8 % (36.0-66.0); PLATELET COUNT, AUTOMATED 112 10^3/uL (150-450); RED BLOOD COUNT 4.05 10^6/uL (4.00-5.40)
[2024-10-17 13:41] LABS: PARTIAL THROMBOPLASTIN TIME 28.2 SECONDS (24.8-34.2); PROTHROMBIN TIME 13.5 SECONDS (12.5-14.5)
[2024-10-17 14:02] LABS: KETONE, URINE AUTO RFX NEGATIVE (NEGATIVE); NITRITE, URINE AUTO RFX NEGATIVE (NEGATIVE); RBC, URINE AUTO RFX 9 /HPF (0-3); SQUAM EPITHELIAL CELL UR AURFX 2 /HPF (0-6)
[2024-10-17 14:03] LABS: LEUKOCYTE ESTERASE UR AUTO RFX 3+ (NEGATIVE); WBC, URINE AUTO RFX TNTC /HPF (0-3)
[2024-10-17 14:09] LABS: KETONE, URINE AUTO RFX NEGATIVE (NEGATIVE); LEUKOCYTE ESTERASE UR AUTO RFX 3+ (NEGATIVE); MUCUS, URINE RFX SMALL (NEGATIVE); NITRITE, URINE AUTO RFX NEGATIVE (NEGATIVE); RBC, URINE AUTO RFX 65 /HPF (0-3); SQUAM EPITHELIAL CELL UR AURFX 2 /HPF (0-6); WBC, URINE AUTO RFX TNTC /HPF (0-3)
[2024-10-17 14:16] LABS: ALBUMIN 3.3 G/DL (3.2-5.2); BILIRUBIN,DIRECT 0.2 MG/DL (<0.4); BILIRUBIN,TOTAL 0.6 MG/DL (0.3-1.2); CALCIUM LEVEL 9.7 MG/DL (8.3-10.6); CREATININE FOR GFR 1.86 MG/DL (0.55-1.30); FREE T4 1.44 NG/DL (0.89-1.76); GLOMERULAR FILTRATION RATE 28.5 (>39); POTASSIUM SERUM 5.3 MMOL/L (3.5-5.1); THYROID STIMULATING HORMONE 2.368 uIU/ML (0.55-4.78); TOTAL PROTEIN 7.2 G/DL (5.7-8.2)
[2024-10-17] MEDS: NS (Normal Saline) 0.9% 1,000 ML IV SCH (15:03)
[2024-10-17] MEDS: VANCOMYCIN HCL 2,000 MG, VIAL MATE ADAPTER 1 EACH in NS 500 ML IV ONE (16:23)
[2024-10-17] MEDS ORDERED: SIME80CH6 PO (16:42)
[2024-10-17] MEDS ORDERED: ONDA-282 PO (16:42)
[2024-10-17] MEDS ORDERED: HOME MED LIST COMPLETE! XX SCH (16:45)
[2024-10-17] MEDS ORDERED: SIMETHICONE 80MG CHEW TAB PO PRN (20:10)
[2024-10-17] MEDS ORDERED: ONDANSETRON 4MG ORAL DISINTEGRATING TAB PO PRN (20:10)
[2024-10-17] MEDS ORDERED: (RENVELA) SEVELAMER **CARBONate** 800 MG TAB PO SCH (21:00)
[2024-10-17] MEDS: (RENVELA) SEVELAMER **CARBONate** 800 MG TAB PO SCH (21:32)
[2024-10-17] MEDS: SODIUM BICARBONATE 325 MG TAB PO SCH (21:33)
[2024-10-17] MEDS: AMITRIPTYLINE 10MG TABLET PO SCH (21:33)
[2024-10-17] MEDS: oxyBUTYnin 5 MG TAB PO SCH (21:33)
[2024-10-17] MEDS: ROSUVASTATIN 10 MG TAB (CRESTOR) PO SCH (21:33)
[2024-10-17 21:34] VITALS: BP 106/58
[2024-10-17] MEDS: METOPROLOL TART 25 MG TABLET PO ONE (21:34)
[2024-10-18] MEDS: LEVOTHYROXINE 50MCG TABLET (0.05MG) PO SCH (05:41)
[2024-10-18 06:28] LABS: HEMATOCRIT 33.7 % (36.0-47.0); MEAN CORPUSCULAR HGB CONC 30.9 g/dl (32.0-36.5); MEAN CORPUSCULAR VOLUME 103.7 fl (80.0-96.0); PLATELET COUNT, AUTOMATED 104 10^3/uL (150-450); RED BLOOD COUNT 3.25 10^6/uL (4.00-5.40)
[2024-10-18 06:35] LABS: HEMOGLOBIN 10.4 g/dl (12.0-15.5)
[2024-10-18 06:49] LABS: VANCOMYCIN RANDOM 29.4 UG/ML
[2024-10-18 06:51] LABS: ALBUMIN 2.7 G/DL (3.2-5.2); BILIRUBIN,TOTAL 0.5 MG/DL (0.3-1.2); CALCIUM LEVEL 8.8 MG/DL (8.3-10.6); CREATININE FOR GFR 3.04 MG/DL (0.55-1.30); GLOMERULAR FILTRATION RATE 16.2 (>39); POTASSIUM SERUM 4.2 MMOL/L (3.5-5.1); TOTAL PROTEIN 5.8 G/DL (5.7-8.2)
[2024-10-18 13:50] VITALS: TEMP 98.3
[2024-10-18] MEDS ORDERED: NALOXONE INJ 0.4MG/1ML VIAL IV PRN (13:55)
[2024-10-18] MEDS ORDERED: ceFAZolin SOD 2 GM in IV 1 EA IV ONE (13:55)
[2024-10-18] MEDS ORDERED: NS (Normal Saline) 0.9% 1,000 ML IV SCH (13:55)
[2024-10-18] MEDS ORDERED: HEPARIN 1,000UNITS/ML 10ML VIAL (FOR RADIOLOGY & DIALYSIS ONLY) As Ordered ONE (14:26)
[2024-10-18] MEDS: MIDAZOLAM INJ 2MG/2ML VIAL IV PRN (14:42)
[2024-10-18] MEDS: fentaNYL 100 MCG/2 ML INJECTION IV PRN (14:42)
[2024-10-18] MEDS ORDERED: ISOVUE-300 61% 100ML VIAL As Ordered ONE (15:12)
[2024-10-18] MEDS: LIDOCAINE 1% MDV 20ML VIAL IM ONE (15:45)
[2024-10-18] MEDS ORDERED: CEFEPIME HCL 1 GM in DEXTROSE 5% (D5W) ADV/MINI-BAG 50 ML IV SCH (16:00)
[2024-10-18] MEDS ORDERED: VANCOMYCIN HCL 1,000 MG, VIAL MATE ADAPTER 1 EACH in NS 250 ML IV SCH (16:00)
[2024-10-18] MEDS ORDERED: CEFD300CAP PO (17:46)
[2024-10-18 18:00] VITALS: BP 106/58; O2SAT 99
[2024-10-19] MEDS ORDERED: HEPARIN 1,000UNITS/ML 10ML VIAL (FOR RADIOLOGY & DIALYSIS ONLY) XX SCH (06:00)
[2024-10-19] MEDS ORDERED: HEPARIN 1,000UNITS/ML 10ML VIAL (FOR RADIOLOGY & DIALYSIS ONLY) IV PRN (06:00)
[2024-10-19] MEDS ORDERED: SODIUM CHLORIDE 0.9% 1000 ML IV PRN (06:00)
[2024-10-19] MEDS ORDERED: LIDOCAINE 1% SDV 5ML VIAL SC PRN (06:00)
[2024-11-25] MEDS ORDERED: AMOX500T PO (15:17)
== END 2024-10-18 18:02 | disposition home or self-care (01) ==
LOC: M ED 12:16 → M ED INP 12:17
PROVIDERS: ADMIT Student in an Organized Health Care Education/Training Program; ATTEND Student in an Organized Health Care Education/Training Program
DX: N39.0 Urinary tract infection, site not specified (principal); N18.6 End stage renal disease; I12.0 Hypertensive chronic kidney disease with stage 5 chronic kidney disease or end stage renal disease; E78.5 Hyperlipidemia, unspecified; Z86.73 Personal history of transient ischemic attack (TIA), and cerebral infarction without residual deficits; E03.9 Hypothyroidism, unspecified; Z85.43 Personal history of malignant neoplasm of ovary; R00.0 Tachycardia, unspecified; Z79.899 Other long term (current) drug therapy; Z79.2 Long term (current) use of antibiotics
CPT/HCPCS: 36415; 36558; 36589; 71045; 80048; 80053; 80076; 80202; 81001; 83605; 83690; 83880; 84439; 84443; 85025; 85027; 85610; 85730; 87040; 87086; 87088; 87186; 87486; 87581; 87633; 87798; 93005; 93041; 93990; 94760; 96365; 96375; 99285; G0378; J2250; J3010; J3371; Q9967

== ENCOUNTER → 2024-10-17 | Outpatient (CLI) | payer MEDICARE ==
[~2024-10-17] MED LIST changes: +AMIT-253 PO; +CEFD300CAP PO; +ISOVUE-300 61% 100ML VIAL IV ONE; +LIDOCAINE 1% MDV 20ML VIAL SC ONE; +MIDAZOLAM INJ 2MG/2ML VIAL IV SCH; +NS 250 ML IV SCH; +ONDA-282 PO; +ONDA-282 SL; +SIME80CH6 PO; +SIME80TA16 PO; +VITA100T14 PO; +fentaNYL 100 MCG/2 ML INJECTION IV SCH
[2024-10-17 11:59] LABS: HEMATOCRIT 36.4 % (36.0-47.0); HEMOGLOBIN 11.9 g/dl (12.0-15.5); MEAN CORPUSCULAR HEMOGLOBIN 32.6 pg (27.0-33.0); MEAN CORPUSCULAR HGB CONC 32.7 g/dl (32.0-36.5); MEAN CORPUSCULAR VOLUME 99.7 fl (80.0-96.0); PLATELET COUNT, AUTOMATED 120 10^3/uL (150-450); RED BLOOD COUNT 3.65 10^6/uL (4.00-5.40); WHITE BLOOD COUNT 5.3 10^3/uL (4.0-10.0)
[2024-10-17 12:11] LABS: INR 1.04; PROTHROMBIN TIME 13.9 SECONDS (12.5-14.5)
[2024-10-17 13:04] LABS: CALCIUM LEVEL 9.7 MG/DL (8.3-10.6); CREATININE FOR GFR 1.76 MG/DL (0.55-1.30); GLOMERULAR FILTRATION RATE 30.4 (>39); POTASSIUM SERUM 3.8 MMOL/L (3.5-5.1)
== END ==
LOC: M IRPRO 11:06
PROVIDERS: ATTEND Internal Medicine Nephrology
DX: N18.6 End stage renal disease (principal)

== ENCOUNTER → 2024-11-25 | Outpatient (CLI) | payer MEDICARE ==
[~2024-11-25] MED LIST changes: +AMOX500T PO; +CEFD300CAP PO; +NS (Normal Saline) 0.9% 1,000 ML IV SCH; +ONDA-282 PO; +SIME80CH6 PO
[2024-11-25 12:45] VITALS: TEMP 97.9
[2024-11-25] MEDS: MIDAZOLAM INJ 2MG/2ML VIAL IV PRN ×2 (14:26→14:46)
[2024-11-25] MEDS: fentaNYL 100 MCG/2 ML INJECTION IV PRN ×2 (14:26→14:46)
[2024-11-25] MEDS: CIPROFLOXACIN 400 MG in IV 1 EA IV ONE (14:26)
[2024-11-25] MEDS: ISOVUE-300 61% 100ML VIAL IV ONE (14:55)
[2024-11-25] MEDS: LIDOCAINE 1% MDV 20ML VIAL SC ONE (14:56)
[2024-11-25 15:30] VITALS: BP 105/55; O2SAT 98
== END ==
LOC: M IRPRO 12:01
PROVIDERS: ATTEND Radiology Diagnostic Radiology
DX: N13.9 Obstructive and reflux uropathy, unspecified (principal)
CPT/HCPCS: 50435; 99152; 99153; C1729; C1894; J0744; J2250; J3010; Q9967

== ENCOUNTER → 2024-12-30 | Outpatient (CLI) | payer MEDICARE ==
[~2024-12-30] VITALS: Ht 152.4 cm; Wt 90.9 kg
[~2024-12-30] MED LIST changes: +ASPI81TA26 PO; +LEVO1TAB38 PO; -NS (Normal Saline) 0.9% 1,000 ML IV SCH
[2024-12-30] MEDS: NS (Normal Saline) 0.9% 1,000 ML IV SCH (13:50)
[2024-12-30 13:58] VITALS: TEMP 96
[2024-12-30] MEDS: ceFAZolin SODIUM 2 GM in DEXTROSE 5% (D5W) ADV/MINI-BAG 50 ML IV ONE (14:32)
[2024-12-30] MEDS: MIDAZOLAM INJ 2MG/2ML VIAL IV PRN (15:01)
[2024-12-30] MEDS: fentaNYL 100 MCG/2 ML INJECTION IV PRN (15:01)
[2024-12-30] MEDS: HEPARIN 1,000UNITS/ML 10ML VIAL (FOR RADIOLOGY & DIALYSIS ONLY) IV PRN (15:45)
[2024-12-30] MEDS: LIDOCAINE 1% MDV 20ML VIAL SC SCH (15:45)
[2024-12-30 16:00] VITALS: BP 87/48; O2SAT 100
== END ==
LOC: M IRPRO 13:48
PROVIDERS: ATTEND Internal Medicine Nephrology
DX: N18.6 End stage renal disease (principal)
CPT/HCPCS: 36561; 36569; 99152; 99153; C1887; C1894; J0690; J2250; J3010

== ENCOUNTER → 2025-01-14 | Outpatient (CLI) | payer MEDICARE | LOC: M PLARAD 13:00 | PROVIDERS: ATTEND Obstetrics & Gynecology | DX: C56.1 Malignant neoplasm of right ovary (principal) | CPT/HCPCS: 78815; A9552 ==

== ENCOUNTER → 2025-06-09 | Outpatient (CLI) | payer MEDICARE ==
[~2025-06-09] VITALS: Ht 147.3 cm; Wt 89.4 kg
[~2025-06-09] MED LIST changes: +AMIT10TA11; +AMIT10TA11 PO; -AMIT10TA7; -AMIT10TA7 PO; +ISOVUE-300 61% 100 ML VIAL IV SCH; +LIDOCAINE 1% MDV 20 ML VIAL SC SCH; +MIDAZOLAM INJ 2 MG/2 ML VIAL As Ordered ONE; +PHENYLephrine 500MCG 5ML (100MCG/ML) SYRINGE As Ordered ONE; -VITA100T14 PO; +VITA100T69 PO
[2025-06-09 09:30] VITALS: TEMP 98.1
[2025-06-09] MEDS: CIPROFLOXACIN 400 MG in IV 1 EA IV ONE (13:27)
[2025-06-09] MEDS: NS (Normal Saline) 0.9% 1,000 ML IV SCH (13:32)
[2025-06-09] MEDS: SODIUM CHLORIDE 0.9% 1000 ML XX SCH (13:33)
[2025-06-09] MEDS: LIDOCAINE 1% MDV 20 ML VIAL SC SCH (13:37)
[2025-06-09] MEDS: ISOVUE-300 61% 100 ML VIAL IV SCH (14:07)
[2025-06-09 15:10] VITALS: BP 126/60; O2SAT 98
== END ==
LOC: M IRPRO 09:26
PROVIDERS: ATTEND Radiology Diagnostic Radiology
DX: N13.9 Obstructive and reflux uropathy, unspecified (principal); N18.9 Chronic kidney disease, unspecified
CPT/HCPCS: 36589; 50387; 84132; C1769; C1894; C2617; J0744; J2250; J2371; J3010; Q9967